=== PATIENT | female | born 1950 | race Caucasian/White ===

== ENCOUNTER 2018-08-18 13:19 | Emergency (ER) | payer MEDICARE ==
--- NOTE | 2018-08-18 13:51 | ER Document Report ---
Addendum entered and electronically signed by DAJUAN MCFARLAND LPC 08/18/18 16:12: Discharge - Discharge Clinical Impression: Depression, Suicidal ideation Condition: Stable Disposition: HOME, SELF-CARE Additional Instructions: You have been evaluated by both medical and behavioral health providers while in the emergency department. You have been cleared from both acute medical and psychiatric services. It is felt your increased depression and suicidal ideation is related to being detoxed and sober from alcohol the past 6 weeks, as well as social factors (got kicked out of [facility] so homeless since not from this area). Medications have been adjusted to account for likely increased depression and anxiety. You have been provided the [facility] Guide for homeless senior living, mobile crisis and local agency supports for dual diagnosis substance abuse/mental health. DEPRESSION: Your evaluation reveals that you have mental depression. While symptoms may be vague, they often include disturbance of sleep, fatigue, loss of appetite, and general loss of interest in life. While depression may be a side effect of drugs, or a reaction to a major change in your life, many cases have no known ca use. If depression is acute, and related to a major loss in your life, you can expect it to clear completely with time. If you have been depressed a long time, are prone to repeated bouts of depression or low mood, or have been thinking of suicide, get help. Depression can be treated with anti-depressant medication and counselling. Long-term depression will often take a few weeks to clear, even with appropriate medication. Follow-up care is important. SUICIDAL IDEATION: Suicidal ideation is a common medical term for thoughts about suicide, which may be as detailed as a formulated plan, without the suicidal act itself. Although most people who undergo suicidal ideation do not commit suicide, some go on to make suicide attempts. The range of suicidal ideation varies greatly from fleeting to detailed planning, role playing, and unsuccessful attempts. While thoughts about suicide are common, most people do not carry out serious actions to commit suicide. Based upon your evaluation and discussion with you, we do not believe you are currently at risk to act upon your thoughts of suicide. You have agreed to return to the Emergency Department, at any time, if you feel inclined to act upon your suicidal thoughts. FOLLOW-UP CARE: Your medications have been adjusted: Discontinued Trazodone 300MG at night and Vistaril 50MG every 4 hours as needed, Decreased Melatonin to 5MG at night, Continued Celexa 20MG daily and added Buspar 5MG twice a day. These are the only psychiatric medications you should take daily as prescribed. You have been given the [facility] Guide for the local Homeless [facility], [facility] for crisis/talk therapy/linkage and [facility] for local dual diagnosis outpatient treatment for substance abuse and mental health. If you experience worsening or a significant change in your symptoms, notify the physician immediately, utilize mobile crisis or return to the Emergency Department at any time for re-evaluation. Referrals: [facility] [Outside] - Follow up as needed [facility] [Outside] - Follow up in 3-5 days Original Note: ED Medical Screen (RME) - General Chief Complaint: Psych Problem Stated Complaint: SUCIDIAL IDEATION Time Seen by Provider: 08/18/18 13:46 TRAVEL OUTSIDE OF THE U.S. IN LAST 30 DAYS: No - HPI Notes: 08/18/18 13:49 Patient is a 68-year-old female with history of anxiety and depression who presents complaining of suicidal ideation and plan without timeline. Patient states that she recently got out of a detox facility for alcohol and has been living at a women's sober housing for the last 6 weeks. Patient states that at her age she is wondering why she is still trying to fight the depression. She states that if she is going to take her life she would take her life by overdosing on her medicines. No HI, visual/auditory hallucinations. No recent illness. She is eating and drinking without difficulty. She is urinating normally. Denies drug allergies. Patient also notes that she has been having decreased vision for almost a year and for the last 6 months has had almost complete loss of vision in the right eye without any associated pain or redness. Patient states that she was evaluated once at another emergency department when her vision was getting worse, but she has not followed up with any grocery store clerk thereafter. Denies SUAZO, fever, neck pain, URI, CP, SOB, Abd pain, dysuria, back pain, or rash. I have treated and performed a rapid initial assessment of this patient. A comprehensive ED assessment and evaluation of the patient, analysis of test results and completion of medical decision making process will be conducted by additional ED providers. PHYSICAL EXAMINATION: GENERAL: Well-appearing, well-nourished and in no acute distress. A&Ox4. Answers questions appropriately. Eyes: PERRLA, EOMI b/l. LUNGS: Breath sounds clear to auscultation bilaterally and equal. No wheezes ra les or rhonchi. HEART: Regular rate and rhythm without murmurs, rubs, gallops. Extremities: No cyanosis, clubbing, or edema b/l. NEUROLOGICAL: Normal speech, normal gait. Cranial nerves grossly intact. PSYCH: Normal mood, normal affect. - Related Data Allergies/Adverse Reactions: No Known Allergies Allergy (Verified 08/18/18 13:39) Physical Exam - Vital signs Vitals: Temp Pulse Resp BP Pulse Ox 98.1 F 87 18 143/89 H 96 08/18/18 13:26 08/18/18 13:26 08/18/18 13:26 08/18/18 13:26 08/18/18 13:26 Course - Vital Signs Vital signs: Temp Pulse Resp BP Pulse Ox 98.1 F 87 18 143/89 H 96 08/18/18 13:26 08/18/18 13:26 08/18/18 13:26 08/18/18 13:26 08/18/18 13:26
--- NOTE | 2018-08-18 16:02 | PSYCHOLOGICAL NOTE ---
Psych Note - Psych Note Date seen by psych provider: 08/18/18 Psych Note: Presenting Problem: Increased Depression, SI, was staying at an [facility] the past 6 weeks, they voted her out yesterday due to not doing 20 hours of work/volunteering a week and not tending to house chores, she is originally from [facility] where she had alcohol detox then went to hospital in [place] then ended up at the [facility], does not want to stay in the area or return to [facility], noted having lived in [place] so maybe making way back there but no family and hasn't talked to friends there in awhile. She reported she has nowhere to go, has no money, would probably kill herself, like lay on [place]. She has medications with her, some current (Celexa 20MG QD, Trazodone 300MG QHS, Melatonin 10MG QHS, Vistaril 50MG Q4H PRN anxiety, Lisinopril 10MG QD) some from the end of 2017 (Effexor 150MG QD, Campral 666MG TID). She stated she has been on the same medications for 11 years and the last 7 years have been prescribed by [facility] in [facility]. She noted [facility] 11 years ago, due to alcohol and depression, has a relapse once a month and hospitalization corresponds with the relapse. She noted Gastric Bypass in 1999. She mentioned a brother in [facility] and an 80 year old Aunt in [place], neither are options for living arrangements per patient. Diagnosis: Recent Alcohol Detox/rehab/recovery Alcohol Use Disorder, Severe Unspecified Depressive Disorder Medication recommendations made by the psychiatric medical provider, Dr. Brandon MD., includes: Discontinue Trazodone 300MG at night for sleep Discontinue Vistaril 50MG every 4 hours as needed for anxiety Decrease Melatonin to 5MG QHS for sleep Continue Celexa 20MG daily for depression/ruminating thoughts Add Buspar 5MG twice a day for anxiety/calming effect/depression/sleep Impression/Plan: Patient is cleared from acute psychiatric services. She noted getting kicked out of an [facility] this morning after being there 6 weeks, not from this area, no place to go and no money. She endorsed SI after saying all the previous information. Mentioned laying on [place]. Depression increases when detoxed/recovering from alcohol. Medication adjustments provided. Provided [facility] Guide which highlighted local Homeless Residential, [facility] and [facility]. Consulted with Dr. Ceja regarding the management and care of patient. ED Physician in agreement with recommendations.
--- NOTE | 2018-08-18 16:18 | ER Document Report ---
ED General <ANIA JAIN - Last Filed: 08/19/18 06:09> - General Mode of Arrival: Ambulatory Information source: Patient TRAVEL OUTSIDE OF THE U.S. IN LAST 30 DAYS: No - HPI Onset: This afternoon Quality of pain: No pain Associated symptoms: None Exacerbated by: Denies Relieved by: Denies Similar symptoms previously: No Recently seen / treated by doctor: No <JOSEPH JACOBSEN - Last Filed: 08/19/18 20:09> - General Chief Complaint: Psych Problem Stated Complaint: SUCIDIAL IDEATION Time Seen by Provider: 08/18/18 13:46 Primary Care Provider: [facility] [Outside] - Follow up as needed [facility] [Outside] - Follow up in 3-5 days Notes: Patient presents emergency department with reports that she is suicidal. Denies history of suicide attempts. Patient gives history of alcohol abuse and rehab several times in the past 11 years. Patient reports that she has not had a drink for approximately 7 weeks. She was living in a sobriety house and was recently kicked out. She reports last night she was kicked out due to disruptive behavior because she had not paid her rent. Patient reports disruptive behavior can be anything from not completing her chores or not doing them correctly. She reports that she was voted out of the house last night and left this morning. Reports all her belongings are at the house and she is 72 hours to retrieve them. Patient reports she is suicidal has a bunch of pills and will plan on taking them. She reports she feels like she is at the end of her life anyway as her father when he was almost 70. She denies recreational drug use. She denies other symptoms such as fever vomiting diarrhea. Denies past medical history of bipolar schizophrenia or mental health issues. She reports alcohol abuse only. Patient does not know where she will go if she is discharged from here. Patient reports she does have a bank account but she cannot get her money out because she does not have an identification card. She reports she has been to the [facility] several times without success. She reports she does get her check on the third. Patient is calm, answering all questions appropriately (JOSEPH JACOBSNE) - Related Data Allergies/Adverse Reactions: No Known Allergies Allergy (Verified 08/19/18 13:46) Past Medical History - General Information source: Patient - Social History Smoking Status: Never Smoker Cigarette use (# per day): No Frequency of alcohol use: None - History of alcohol abuse Drug Abuse: None Lives with: Homeless Family History: Reviewed & Not Pertinent Patient has suicidal ideation: Yes Patient has homicidal ideation: No - Past Medical History Cardiac Medical History: Reports: Hx Hypertension Pulmonary Medical History: Reports: Hx Asthma Renal/ Medical History: Denies: Hx Peritoneal Dialysis Psychiatric Medical History: Reports: Hx Depression Past Surgical History: Reports: Hx Abdominal Surgery, Hx Breast Surgery, Hx Ort hopedic Surgery - right knee replacement <JOSEPH JACOBSEN - Last Filed: 08/19/18 20:09> Review of Systems <JOSEPH JACOBSEN - Last Filed: 08/19/18 20:09> - Review of Systems Notes: Review HPI for review of systems., All other systems negative (JOSEPH JACOBSEN) Physical Exam <JOSEPH JACOBSEN - Last Filed: 08/19/18 20:09> - Vital signs Vitals: Temp Pulse Resp BP Pulse Ox 98.1 F 87 18 143/89 H 96 08/18/18 13:26 08/18/18 13:26 08/18/18 13:26 08/18/18 13:26 08/18/18 13:26 - Notes Notes: PHYSICAL EXAMINATION: GENERAL: Well-appearing and in no acute distress HEAD: Atraumatic, normocephalic. EYES: Pupils equal round extraocular movements intact, sclera anicteric, conjunctiva are normal. ENT: nares patent, Moist mucous membranes. NECK: Normal range of motion, supple without lymphadenopathy LUNGS: CTAB and equal. No wheezes rales or rhonchi. HEART: Regular rate and rhythm without murmurs ABDOMEN: Soft, no tenderness. No guarding, no rebound EXTREMITIES: Normal range of motion, NEUROLOGICAL: Cranial nerves grossly intact. PSYCH: Normal mood, normal affect. SKIN: Warm, Dry, normal turgor, no rashes or lesions noted (JOSEPH JACOBSEN) Course - Laboratory Result Diagrams: 08/18/18 17:05 08/18/18 13:51 <ANIA JAIN - Last Filed: 08/19/18 06:09> - Laboratory Result Diagrams: 08/18/18 17:05 08/18/18 13:51 - EKG Interpretation by Me EKG shows normal: Sinus rhythm Rate: Normal Rhythm: NSR <JOSEPH JACOBSEN - Last Filed: 08/19/18 20:09> - Re-evaluation Re-evalutation: 08/19/18 06:09 There is been no change in patient's status to the night. Patient has been resting comfortably with eyes closed in no acute distress noted. Currently awaiting consult with ED delinquency prevention social worker as well as community paramedics. (ANIA JAIN) 08/18/18 16:43 behavioral health, Siria advised patient to be discharged she does not think she is suicide will but homeless. Vikram reports she discussed a ride to the homeless fpc with dining service supervisor and it has been approved. Both Vikram and I talked with patient. Patient reports that she does not know what she will do, she reports she is not afraid to be suicidal with her medications. She reports she does not have anywhere to go she has never been in this position all her belongings are at the sobriety house. She reports that she does not have an identification. She cannot obtain money from her bank. Since patient does not have an identification she cannot go the homeless fpc. We will keep her overnight and plan on discharging home tomorrow with assistance from mobile crisis center and community paramedics to help her obtain an ID and secure housing. I left a message on Maicol Royal, ED disease case manager telephone for community forest fire prevention manager help. Patient has taken her lisinopril and Celexa today. Mental health advises trazodone and vistaril be discontinued but add BuSpar 5 mg twice daily. Patient was instructed on changes. Dictation of this chart was performed using voice recognition software; the refore, there may be some unintended grammatical errors. 08/18/18 16:56 maicol aden at my desk, updated on patient situation. she will contact the community paramedics. 08/18/18 19:28 Patient Is calm no distress reports dinner was great seems to be enjoying her stay. 08/18/18 20:13 REPORT given to ania gale (JOSEPH JACOBSEN) - Vital Signs Vital signs: Temp Pulse Resp BP Pulse Ox 98.4 F 77 18 147/90 H 99 08/19/18 13:10 08/19/18 13:10 08/19/18 13:10 08/19/18 13:10 08/19/18 13:10 - Laboratory Laboratory results interpreted by me: 08/18/18 08/18/18 08/18/18 13:51 14:45 17:05 Hgb 11.1 L Hct 34.0 L RDW 19.8 H Creatinine 0.39 L Glucose 161 H Urine Blood SMALL H Ur Leukocyte Esterase LARGE H Salicylates < 1.0 L Acetaminophen < 10 L - EKG Interpretation by Me Additional EKG results interpreted by me: 08/18/18 20:14 ST elevation no T wave inversion (JOSEPH JACOBSEN) Discharge <ANIA JAIN - Last Filed: 08/19/18 06:09> <JOSEPH JACOBSEN - Last Filed: 08/19/18 20:09> - Discharge Clinical Impression: Depression, Suicidal ideation Condition: Stable Disposition: HOME, SELF-CARE Additional Instructions: You have been evaluated by both medical and behavioral health providers while in the emergency department. You have been cleared from both acute medical and psychiatric services. It is felt your increased depression and suicidal ideation is related to being detoxed and sober from alcohol the past 6 weeks, as well as social factors (got kicked out of [facility] so homeless since not from this area). Medications have been adjusted to account for likely increa sed depression and anxiety. You have been provided the [facility] for homeless fpc, mobile crisis and local agency supports for dual diagnosis substance abuse/mental health. DEPRESSION: Your evaluation reveals that you have mental depression. While symptoms may be vague, they often include disturbance of sleep, fatigue, loss of appetite, and general loss of interest in life. While depression may be a side effect of drugs, or a reaction to a major change in your life, many cases have no known cause. If depression is acute, and related to a major loss in your life, you can expect it to clear completely with time. If you have been depressed a long time, are prone to repeated bouts of depression or low mood, or have been thinking of suicide, get help. Depression can be treated with anti-depressant medication and counselling. Long-term depression will often take a few weeks to clear, even with appropriate medication. Follow-up care is important. SUICIDAL IDEATION: Suicidal ideation is a common medical term for thoughts about suicide, which may be as detailed as a formulated plan, without the suicidal act itself. Although most people who undergo suicidal ideation do not commit suicide, some go on to make suicide attempts. The range of suicidal ideation varies greatly from fleeting to detailed planning, role playing, and unsuccessful attempts. While thoughts about suicide are common, most people do not carry out serious actions to commit suicide. Based upon your evaluation and discussion with you, we do not believe you are currently at risk to act upon your thoughts of suicide. You have agreed to return to the Emergency Department, at any time, if you feel inclined to act upon your suicidal thoughts. FOLLOW-UP CARE: Your medications have been adjusted: Discontinued Trazodone 300MG at night and Vistaril 50MG every 4 hours as needed, Decreased Melatonin to 5MG at night, Continued Celexa 20MG daily and added Buspar 5MG twice a day. These are the only psychiatric medications you should take daily as prescribed. You have been given the [facility] Sheet for the local [facility], [facility] for crisis/talk therapy/linkage and [facility] for local dual diagnosis outpatient treatment for substance abuse and mental health. It also lists other important information regarding social needs. You should return to the [facility] to obtain possessions and see if they can assist with other temporary and social needs. If you experience worsening or a significant change in your symptoms, notify the physician immediately, utilize mobile crisis or return to the Emergency Department at any time for re-evaluation. Referrals: [facility] [Outside] - Follow up as needed [facility] [Outside] - Follow up in 3-5 days
[2018-08-18 16:34] LABS: APPEARANCE,URINE CLOUDY; BILIRUBIN,URINE NEGATIVE (NEGATIVE); COLOR,URINE YELLOW; GLUCOSE, URINE NEGATIVE (NEGATIVE); KETONES,URINE NEGATIVE (NEGATIVE); LEUKOCYTE ESTERASE,URINE LARGE (NEGATIVE); NITRITE,URINE NEGATIVE (NEGATIVE); PROTEIN,URINE NEGATIVE (NEGATIVE); URINE SPECIFIC GRAVITY 1.012; UROBILINOGEN,URINE NEGATIVE mg/dL (<2.0)
[2018-08-18 16:43] LABS: URINE AMPHETAMINES SCREEN NEGATIVE; URINE BARBITURATES SCREEN NEGATIVE; URINE BENZODIAZEPINES SCREEN NEGATIVE; URINE COCAINE SCREEN NEGATIVE; URINE MARIJUANA (THC) SCREEN NEGATIVE; URINE METHADONE SCREEN NEGATIVE; URINE PHENCYCLIDINE SCREEN NEGATIVE
[2018-08-18] MEDS: BUSPIRONE HCL 10 MG TABLET PO SCH (17:36)
[2018-08-18 17:38] LABS: ABSOLUTE BASOPHILS # (AUTO) 0.1 10^3/uL (0.0-0.2); ABSOLUTE EOSINOPHILS # (AUTO) 0.2 10^3/uL (0.0-0.6); ABSOLUTE LYMPHOCYTES (AUTO) 2.2 10^3/uL (0.5-4.7); ABSOLUTE MONOCYTES (AUTO) 0.6 10^3/uL (0.1-1.4); ABSOLUTE NEUT (AUTO) 3.6 10^3/uL (1.7-8.2); BASOPHILS % (AUTO) 1.3 % (0-2); EOSINOPHILS % (AUTO) 2.8 % (0-6); HEMOGLOBIN 11.1 g/dL (12.0-15.5); LYMPHOCYTES % (AUTO) 33.2 % (13-45); MEAN CORPUSCULAR HEMOGLOBIN 28.4 pg (27.0-33.4); MEAN CORPUSCULAR HGB CONC 32.7 g/dL (32.0-36.0); MEAN CORPUSCULAR VOLUME 87 fl (80-97); MONOCYTES % (AUTO) 9.1 % (3-13); PLATELET COUNT 226 10^3/uL (150-450); RED CELL DISTRIBUTION WIDTH 19.8 % (11.5-14.0); SEGMENTED NEUTROPHILS % (AUTO) 53.6 % (42-78); TOTAL CELLS COUNTED % (AUTO) 100 %; WHITE BLOOD COUNT 6.7 10^3/uL (4.0-10.5)
[2018-08-18 17:48] LABS: ALANINE AMINOTRANSFERASE 14 U/L (9-52); ALBUMIN 3.9 g/dL (3.5-5.0); ALKALINE PHOSPHATASE 70 U/L (38-126); ANION GAP 7 (5-19); ASPARTATE AMINO TRANSFERASE 21 U/L (14-36); BILIRUBIN,DIRECT 0.2 mg/dL (0.0-0.4); BILIRUBIN,TOTAL 0.4 mg/dL (0.2-1.3); BLOOD UREA NITROGEN 9 mg/dL (7-20); CALCIUM 9.8 mg/dL (8.4-10.2); CARBON DIOXIDE 27 mmol/L (22-30); CHLORIDE 104 mmol/L (98-107); GLUCOSE 161 mg/dL (75-110); POTASSIUM 3.7 mmol/L (3.6-5.0); SODIUM 138.2 mmol/L (137-145); TOTAL PROTEIN 6.4 g/dL (6.3-8.2)
[2018-08-18 17:49] LABS: ACETAMINOPHEN < 10 ug/mL (10-30); ALCOHOL < 10 mg/dL (NONE DETECTED); SALICYLATE < 1.0 mg/dL (2.0-20.0)
--- NOTE | 2018-08-18 18:23 | EKG REPORT ---
SEVERITY:- ABNORMAL ECG - SINUS RHYTHM ABNRM R PROG, CONSIDER ASMI OR LEAD PLACEMENT : Confirmed by: Wang Rivers MD 18-Aug-2018 18:22:53
[2018-08-18] MEDS ORDERED: MELATONIN 5 MG TABLET PO SCH (22:00)
[2018-08-19] MEDS: BUSPIRONE HCL 10 MG TABLET PO SCH (09:26)
--- NOTE | 2018-08-19 10:20 | ER Document Report ---
Doctor's Note Notes: 08/19/18 10:19 Rounds: Chart reviewed and patient interviewed. Patient says she still depressed. According to her chart, she is homeless. [place] here [place]. History of depression and anxiety. History of alcohol abuse. Vital signs are all normal. Lab studies were essentially normal except for urine whic h looks contaminated. Patient has no UTI symptoms. Patient appears to be medically stable for transfer or discharge. Henna Andino MD
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
[2018-08-19 13:11] VITALS: BP 147/90
== END 2018-08-19 13:27 | disposition home or self-care (01) ==
LOC: ER 13:19
DX: R45.851 Suicidal ideations (principal); F32.9 Major depressive disorder, single episode, unspecified; F41.9 Anxiety disorder, unspecified; Z59.0 Homelessness
CPT/HCPCS: 93005; 99285; 36415; 80307 ×4; 85025; 80053; 81001; 93010; A9270 ×3; J3490

== ENCOUNTER 2018-08-19 13:45 | Emergency (ER) | payer MEDICARE ==
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
--- NOTE | 2018-08-19 14:57 | PSYCHOLOGICAL NOTE ---
<DAJUAN MCFARLAND - Last Filed: 08/19/18 15:06> Psych Note - Psych Note Date seen by psych provider: 08/19/18 Psych Note: Presenting Problem: No pace to go so SI. Patient was seen yesterday and held overnight for the same reason. She was discharged today, supposed to go to the [facility] to get her belongings and see if they had resources and recommendations, provided [facility] Street Sheet which highlighted [facility]/Local [facility]eless [facility]-Way. The [facility] team consulted with the [facility] and ED SW. Patient stayed in the lobby of the ED and never left. She then checked back in saying she had nowhere to go. Diagnosis: Homelessness SI Depression Recent detox and 6 week rehab for alcohol Medication recommendations made by the psychiatric medical provider, Dr. Brandon MD., includes: Continue medications from earlier discharge Celexa 20MG QD Buspar 5MG BID Melatonin 5MG QHS Impression/Plan: Patient is cleared from acute psychiatric services. Her issues are felt to be social in nature (no home/residence, no transportation, no money since she has no access to bank). She needs an ID but has to have a SS card or certificate which she says she does not have and is not sure where it is. She remained in the ED lobby upon <RESHMA SOTOMAYOR - Last Filed: 08/22/18 08:40> Psych Note - Psych Note Psych Note: Update to Diagnosis: Malingering Unspecified personality disorder Homelessness alcohol abuse per history
--- NOTE | 2018-08-19 15:20 | ER Document Report ---
ED Psych Disorder / Suicide - General Mode of Arrival: Ambulatory TRAVEL OUTSIDE OF THE U.S. IN LAST 30 DAYS: No - General Chief Complaint: Psych Problem Stated Complaint: PSYCH Time Seen by Provider: 08/19/18 14:10 Primary Care Provider: [facility] [Outside] - Follow up as needed [facility] [Outside] - Follow up as needed Notes: Patient is here to be evaluated for depression and suicidal thoughts. She says she feels "hopeless" and feels like she wants to "end it". Patient was just seen in our facility last night and this morning and just discharged a short while ago. Patient has a sister who lives in [facility]. She will have nothing to do with this patient because of the patient's being in and out of facilities, apparently for alcohol abuse. Patient was seen at [facility] a couple of months ago and admitted there and after being discharged she was transferred to a facility in [facility]. She did not pay her rent and was kicked out of that facility and is now here. Patient says that her problem is that she has money in the bank, but in being transferred from [place] to [place], she had two of her bags of belongings lost and 1 of them had her picture ID in it. She is now unable to em the check or get access to her finds that are in the bank to pay her rent or to eat or anything else. (NEMO CHOU) - Related Data Allergies/Adverse Reactions: No Known Allergies Allergy (Verified 08/19/18 13:46) Past Medical History - General Information source: Patient - Social History Smoking Status: Former Smoker Frequency of alcohol use: None Drug Abuse: None Family History: Reviewed & Not Pertinent Patient has suicidal ideation: Yes Patient has homicidal ideation: No - Past Medical History Cardiac Medical History: Reports: Hx Hypertension Pulmonary Medical History: Reports: Hx Asthma Psychiatric Medical History: Reports: Hx Depression Past Surgical History: Reports: Hx Abdominal Surgery, Hx Breast Surgery, Hx Orthopedic Surgery - right knee replacement Review of Systems - Review of Systems Notes: CONSTITUTIONAL : Denies fever. CARDIOVASCULAR: Denies chest pain. RESPIRATORY: Denies cough, chest congestion, or shortness of breath. GASTROINTESTINAL: Denies abdominal pain or nausea, vomiting, or diarrhea. GENITOURINARY: Denies difficulty or painful urinating, urinary frequency, blood in urine. (NEMO CHOU) Physical Exam - Vital signs Interpretation: Normal - Vital signs Vitals: Temp Pulse Resp BP Pulse Ox 98.6 F 91 13 154/82 H 97 08/19/18 13:51 08/19/18 13:51 08/19/18 13:51 08/19/18 13:51 08/19/18 13:51 Notes: PHYSICAL EXAMINATION: GENERAL: Well-appearing, no acute distress. HEAD: Atraumatic, normocephalic. NECK: Normal range of motion, supple. LUNGS: Breath sounds clear and equal bilaterally. HEART: Regular rate and rhythm without murmurs heard. ABDOMEN: Soft, nontender. No guarding or rebound or masses felt. (NEMO CHOU) Course - Re-evaluation Re-evalutation: 08/19/18 19:50 Am not sure what we have further to offer this patient. Everyone has been looking into alternatives and there do not seem to be any. I am going to keep this patient overnight so that we can try to address her one final time tomorrow. (NEMO CHOU) - Vital Signs Vital signs: Temp Pulse Resp BP Pulse Ox 98.6 F 91 13 154/82 H 97 08/19/18 13:51 08/19/18 13:51 08/19/18 13:51 08/19/18 13:51 08/19/18 13:51 - Laboratory Laboratory results interpreted by me: 08/19/18 14:16 Urine Ketones TRACE H Urine Urobilinogen 2.0 H Ur Leukocyte Esterase TRACE H Discharge - Discharge Clinical Impression: Depression, Suicidal ideation Condition: Stable Disposition: HOME, SELF-CARE Additional Instructions: You have been evaluated by both medical and behavioral health providers while in the emergency department. You have been cleared from both acute medical and psychiatric services. It is felt your issues are social in nature (no place to live or go, no transportation, no money because lost bank card for access, no ID because lost it). The [facility] team coordinated with emergency department social work and community paramedics regarding your social needs at your earlier visit. You were made aware of need for ID and given [facility] Street Sheet. DEPRESSION: Your evaluation reveals that you have mental depression. While symptoms may be vague, they often include disturbance of sleep, fatigue, loss of appetite, and general loss of interest in life. While depression may be a side effect of drugs, or a reaction to a major change in your life, many cases have no known cause. If depression is acute, and related to a major loss in your life, you can expect it to clear completely with time. If you have been depressed a long time, are prone to repeated bouts of depression or low mood, or have been thinking of suicide, get help. Depression can be treated with anti-depressant medication and counselling. Long-term depression will often take a few weeks to clear, even with appropriate medication. Follow-up care is important. SUICIDAL IDEATION: Suicidal ideation is a common medical term for thoughts about suicide, which may be as detailed as a formulated plan, without the suicidal act itself. Although most people who undergo suicidal ideation do not commit suicide, some go on to make suicide attempts. The range of suicidal ideation varies greatly from fleeting to detailed planning, role playing, and unsuccessful attempts. While thoughts about suicide are common, most people do not carry out serious actions to commit suicide. Based upon your evaluation and discussion with you, we do not believe you are currently at risk to act upon your thoughts of suicide. You have agreed to return to the Emergency Department, at any time, if you feel inclined to act upon your suicidal thoughts. FOLLOW-UP CARE: Recommendation is for your to go back to the [facility] where you had been residing the last 6 weeks to obtain your belongings and inquire about assistance/resources they might have or know. You have access to [facility] Mobile Crisis contact information. If you experience worsening or a significant change in your symptoms, notify the physician immediately, utilize or return to the Emergency Department at any time for re-evaluation. Referrals: [facility] [Outside] - Follow up as needed [facility] [Outside] - Follow up as needed
[2018-08-19] MEDS: BUSPIRONE HCL 10 MG TABLET PO SCH (18:50)
[2018-08-19 18:51] LABS: APPEARANCE,URINE SLIGHTLY-CLOUDY; BILIRUBIN,URINE NEGATIVE (NEGATIVE); CALCIUM OXALATE CRYSTALS,URINE FEW /HPF; GLUCOSE, URINE NEGATIVE (NEGATIVE); KETONES,URINE TRACE mg/dL (NEGATIVE); LEUKOCYTE ESTERASE,URINE TRACE (NEGATIVE); NITRITE,URINE NEGATIVE (NEGATIVE); PROTEIN,URINE NEGATIVE (NEGATIVE); URINE SPECIFIC GRAVITY 1.023
[2018-08-19 18:52] LABS: COLOR,URINE DARK YELLOW
[2018-08-19 19:09] LABS: URINE AMPHETAMINES SCREEN NEGATIVE; URINE BARBITURATES SCREEN NEGATIVE; URINE BENZODIAZEPINES SCREEN NEGATIVE; URINE COCAINE SCREEN NEGATIVE; URINE MARIJUANA (THC) SCREEN NEGATIVE; URINE METHADONE SCREEN NEGATIVE; URINE PHENCYCLIDINE SCREEN NEGATIVE
[2018-08-20] MEDS: CITALOPRAM HYDROBROMIDE 20 MG TABLET PO SCH (09:55)
[2018-08-20] MEDS: BUSPIRONE HCL 10 MG TABLET PO SCH ×2 (09:55→17:47)
[2018-08-21] MEDS: CITALOPRAM HYDROBROMIDE 20 MG TABLET PO SCH (10:05)
[2018-08-21] MEDS: BUSPIRONE HCL 10 MG TABLET PO SCH ×2 (10:05→17:39)
--- NOTE | 2018-08-21 17:10 | ER Document Report ---
Doctor's Note Notes: 08/21/18 17:08 Patient continues on social hold. Social workers are attempting to find a solution to her homeless dilemma at this time. The patient seems to be trying to have a toxic any solutions that the social workers, come up with. It has been determined that the patient has been seeing Dr. Pollock and getting prescriptions from him. His office will be contacted in an attempt to get a valid ID on the patient as she claims loss of her IV is preventing her from accessing her bank accounts. She appears in no distress, sitting up in the bed reading. She has requested that her lap and table be brought to her from the last facility she was staying in.
[2018-08-22] MEDS: BUSPIRONE HCL 10 MG TABLET PO SCH ×2 (10:03→18:23)
[2018-08-22] MEDS: CITALOPRAM HYDROBROMIDE 20 MG TABLET PO SCH (10:03)
--- NOTE | 2018-08-22 18:30 | ER Document Report ---
Doctor's Note Notes: 08/22/18 18:30 Pleasantly sitting haircutting pictures out of magazines. No complaints. Probably homeless. I do not know what she is doing here but I will let social work to do their thing. Here for services as a physician if need be however I think patient needs social science research assistant not physician services. It is unfortunate that this lady is in the emergency department.
--- NOTE | 2018-08-23 09:28 | ER Document Report ---
Doctor's Note Notes: 08/23/18 09:27 Patient seen and evaluated. She is resting comfortably in bed and in no acute distress. She has no current complaints. Patient is on a social hold for reportedly being homeless. She expresses to me that she would like to go back to the [employer] She also states that she has money to do so but cannot get it without an ID. She is awaiting social service liaison. She is medically stable
[2018-08-23] MEDS: CITALOPRAM HYDROBROMIDE 20 MG TABLET PO SCH (09:57)
[2018-08-23] MEDS: BUSPIRONE HCL 10 MG TABLET PO SCH ×2 (09:57→18:07)
[2018-08-23] MEDS ORDERED: ONDANSETRON 4 MG TAB.RAPDIS PO ONE (13:34)
--- NOTE | 2018-08-24 09:39 | ER Document Report ---
Doctor's Note Notes: 08/24/18 09:39 Patient seen and evaluated. She has no change since yesterday. Patient is awaiting transition social worker consultation today. She has no medical complaints and is otherwise medically cleared.
[2018-08-24] MEDS: BUSPIRONE HCL 10 MG TABLET PO SCH ×2 (10:11→18:10)
[2018-08-24] MEDS: CITALOPRAM HYDROBROMIDE 20 MG TABLET PO SCH (10:13)
[2018-08-25] MEDS: CITALOPRAM HYDROBROMIDE 20 MG TABLET PO SCH (09:26)
[2018-08-25] MEDS: BUSPIRONE HCL 10 MG TABLET PO SCH ×2 (09:26→18:31)
--- NOTE | 2018-08-25 10:14 | ER Document Report ---
Doctor's Note Notes: 08/25/18 10:10 Rounds: Patient is here because she is homeless and does not have any place to go. She was admitted for suicidal thoughts. I recall the patient from seeing her when she was readmitted about 4 days ago. Patient has all of her belongings in her room. Apparently has money in a bank, but cannot access it because she does not have a picture ID. Not sure what the plan is for the patient. Does not have anyone here in this area, comes from [facility]. Vital signs all remained stable and normal. Lab studies initially were all normal. Patient appears to be medically stable for transfer or discharge. Henna Andino MD
[2018-08-26] MEDS: CITALOPRAM HYDROBROMIDE 20 MG TABLET PO SCH (10:17)
[2018-08-26] MEDS: BUSPIRONE HCL 10 MG TABLET PO SCH (10:17)
--- NOTE | 2018-08-26 10:34 | ER Document Report ---
Doctor's Note Notes: 08/26/18 10:32 Rounds: Chart reviewed and patient interviewed. No change in condition. Vital signs are all normal. Awaiting discharge planning's assistance on placing patient. Patient appears to be medically stable for transfer or discharge. Henna Andino MD
[2018-08-26 15:15] VITALS: BP 174/93
== END 2018-08-26 15:20 | disposition home or self-care (01) ==
LOC: ER 13:45
DX: F32.9 Major depressive disorder, single episode, unspecified (principal); R45.851 Suicidal ideations; I10 Essential (primary) hypertension; J45.909 Unspecified asthma, uncomplicated; Z87.891 Personal history of nicotine dependence; Z59.0 Homelessness; Z59.8 Other problems related to housing and economic circumstances
CPT/HCPCS: 99285; 81001; 80307; A9270 ×16; S0119

== ENCOUNTER 2018-09-06 13:57 | Emergency (ER) | payer MEDICARE ==
[2018-09-06] MEDS ORDERED: NORMAL SALINE 1000 ML 1,000 ML IV ONE (14:40)
[2018-09-06 14:46] VITALS: BP 91/60
--- NOTE | 2018-09-06 14:47 | ER Document Report ---
ED Psych Disorder / Suicide - General Chief Complaint: Psych Problem Stated Complaint: PSYCH EVAL Time Seen by Provider: 09/06/18 14:28 TRAVEL OUTSIDE OF THE U.S. IN LAST 30 DAYS: No - HPI Notes: Patient is a 68-year-old female that presents to the emergency department for chief complaint of suicidal ideation. Patient had been placed at a homeless jail from this emergency room on 08/26/2018. She states that she did not like the jail and would "rather be than live like that" so she left the jail on her own accord. Patient then went to a motel and was reportedly evicted today for not paying her bill. [place] police were with the patient evicting her from the motel when she told them that she would just have to kill herself since she had nowhere to go. EMS was then called who brought her to the emergency room. Patient does state that she would rather be than homeless. She is still drinking alcohol daily. She admits that she has money which previously she had said she did not have access to. Patient has been using her money to buy alcohol at [employer] per her. Patient has no medical complaints including chest pain, shortness of breath, nausea/vomiting, abdominal pain, fevers and chills. Past Medical History: Depression Past Surgical History: Reviewed in chart Social History: Alcoholism, denies tobacco and drug use Family History: Reviewed and noncontributory for presenting illness Allergies: Reviewed, see documented allergy list. REVIEW OF SYSTEMS: CONSTITUTIONAL : No fever No chills No diaphoresis No recent illness EENT: No vision changes No congestion No sore throat CARDIOVASCULAR: No chest pain No palpitations RESPIRATORY: No shortness of breath No cough No difficulty breathing GASTROINTESTINAL: No abdominal pain No nausea No vomiting No diarrhea GENITOURINARY: No dysuria No hematuria No difficulty urinating MUSCULOSKELETAL: No back pain No leg pain No arm pain SKIN: No rashes No lesions LYMPHATIC: No swollen, enlarged glands. NEUROLOGICAL: No lightheadedness No headache No weakness No paresthesias PSYCHIATRIC: No anxiety No depression PHYSICAL EXAMINATION: Vital signs reviewed, nursing noted reviewed. GENERAL: Well-appearing, well-nourished and in no acute distress. HEAD: Atraumatic, normocephalic. EYES: Eyes appear normal, extraocular movements intact, sclera anicteric, conjunctiva are normal. ENT: nares patent, oropharynx clear without exudates. Mildly dry mucous membranes. NECK: Normal range of motion, supple without lymphadenopathy LUNGS: Breath sounds clear to auscultation bilaterally and equal. No wheezes rales or rhonchi. HEART: Tachycardic rate and regular rhythm without murmurs ABDOMEN: Soft, nontender, normoactive bowel sounds. No rebound, guarding, or rigidity. No masses appreciated. EXTREMITIES: Nontender, good range of motion, no pitting or edema. NEUROLOGICAL: No focal neurological deficits. Moves all extremities sponta neously Motor and sensory grossly intact on exam. PSYCH: Agitated mood, normal affect. SKIN: Warm, Dry, normal turgor, no rashes or lesions noted on exposed skin - Related Data Allergies/Adverse Reactions: No Known Allergies Allergy (Verified 08/19/18 13:46) Past Medical History - Social History Smoking Status: Unknown if Ever Smoked Family History: Reviewed & Not Pertinent Patient has suicidal ideation: Yes Patient has homicidal ideation: No - Past Medical History Cardiac Medical History: Reports: Hx Hypertension Pulmonary Medical History: Reports: Hx Asthma Renal/ Medical History: Denies: Hx Peritoneal Dialysis Psychiatric Medical History: Reports: Hx Depression Past Surgical History: Reports: Hx Abdominal Surgery, Hx Breast Surgery, Hx Orthopedic Surgery - right knee replacement Physical Exam - Vital signs Vitals: Pulse Resp BP Pulse Ox 101 H 18 91/60 L 94 09/06/18 14:45 09/06/18 14:45 09/06/18 14:45 09/06/18 14:45 Course - Re-evaluation Re-evalutation: 09/06/18 14:45 Vitals reviewed. Nursing notes reviewed. Patient is mildly tachycardic with a borderline blood pressure. She has dry mucous membranes. She states she has been mostly drinking alcohol and I suspect she is dehydrated. Patient will be given IV fluids. I did evaluate this patient in the last time she was in the emergency room. She appears well kept today and is clean. She does not clinically appear intoxicated and is speaking in full sentences. Patient clearly has secondary gain to benefit by staying in the emergency room since she has been evicted by the hotel. Patient was in the emergency room on her last visit for a prolonged period of time while the social workers were attempting to get her placed in the jail. I am being told that the jail but the rules to get her in because she did not have an ID. At that time patient was stating that she had no money or way to access her money because she did not have an I&D however she has continued to buy groceries and alcohol and now tells me that she does have money. Patient's plan is to "take pills" she does state that she will kill herself if she continues to be homeless. Patient has no history of suicide attempt in the past. She has no reported self injury today. 09/06/18 15:19 Patient was evaluated by the psych team. I did witness conversations that were had with Dr. Ceja. Dr. Ceja is very familiar with this patient and does not feel she is acutely suicidal or requiring any further inpatient evaluation. Patient is malingering and has secondary gain. At this point I do not feel she is actively suicidal. Patient's blood pressure is borderline and I recommended blood work and IV fluids given her apparent dehydration. Patient stated that needles make her feel lightheaded and that we would not be getting near her with a needle today. I did tell her that we might find a medical reason she may need to stay in the hospital however she has continued to decline. When I told her that she needs to drink more water to stay hydrated and she rolled her eyes and told me to "fuck off". Patient is on her cell phone at least speaking with someone in an attempt to get a ride out of the emergency room. At this point she is refusing any medical care and does have capacity to make medical decisions. She has no criteria for involuntary commitment. Patient will leave the department AGAINST MEDICAL ADVICE. - Vital Signs Vital signs: Temp Pulse Resp BP Pulse Ox 101 H 18 91/60 L 94 09/06/18 14:45 09/06/18 14:45 09/06/18 14:45 09/06/18 14:45 Discharge - Discharge Clinical Impression: Dehydration, Malingering, Suicidal ideation Low blood pressure Qualifiers: Hypotension type: unspecified hypotension type Qualified Code(s): I95.9 - Hypotension, unspecified Condition: Stable Disposition: AGAINST MEDICAL ADVICE Instructions: Dehydration ([facility]), Chronic Alcoholism ([facility]) Additional Instructions: Your blood pressure was low today and it was recommended that you receive IV fluids and a work-up including blood work in the emergency room. I suspect you are dehydrated and encourage you to drink more fluids. Please decrease the amount of alcohol you are consuming daily. If you have any concerns please return to the emergency room for further management Please contact your doctor regarding your home medications and follow-up. If you have any questions please do not hesitate to return to the emergency room Referrals: [facility] [Provider Group] - Follow up as needed [facility] [Provider Group] - Follow up as needed [facility] [Provider Group] - Follow up as needed
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
== END 2018-09-06 15:29 | disposition left against medical advice (07) ==
LOC: ER 13:57
DX: R45.851 Suicidal ideations (principal); E86.0 Dehydration; I95.9 Hypotension, unspecified; Z76.5 Malingerer [conscious simulation]; Z59.0 Homelessness; R00.0 Tachycardia, unspecified; I10 Essential (primary) hypertension; J45.909 Unspecified asthma, uncomplicated; F10.20 Alcohol dependence, uncomplicated
CPT/HCPCS: 99284

== ENCOUNTER 2018-09-06 20:40 | Emergency (ER) | payer MEDICARE ==
--- NOTE | 2018-09-06 21:37 | ER Document Report ---
ED General - General Stated Complaint: SI TRAVEL OUTSIDE OF THE [place] IN LAST 30 DAYS: No - HPI Notes: Patient is a 68-year-old female that presents to the emergency department for chief complaint of suicidal ideation. She was evaluated in this emergency room a few hours ago with the same complaint. She has been seen multiple occasions in the emergency room complaining of suicidal ideation. Patient has no history of suicide attempt or self-harm. She was evaluated by the psych team early this morning and today and cleared from their service. Patient had a friend pick her up from the emergency room and went to [facility] where she bought a box of wine. Patient was sitting outside of [facility] drinking the wine when police were called. Police then notified EMS because patient appeared intoxicated. EMS did not feel at that time she needed to be transported however they were called back to the scene a second time. At that time they involved mobile crisis who came to [facility]. Mobile crisis had the patient on the phone with an inpatient detox facility who had a bed available for her tonight if she would talk to them over the phone and provide information. Patient did not wish to participate in this phone call. 1 of the EMS providers reportedly gave her a phone number of someone in the area who helps find nursing home at night for homeless however after one phone call patient refused to try the phone number back again. The mobile crisis caregiver who is present at bedside states that once it was clear to the patient that she did not have an inpatient bed for the night she began telling mobile crisis that she was going to kill herself. At that time mobile crisis instructed EMS to bring her to [facility] emergency room. Patient is still stating that she thinks about killing herself by taking her trazodone. This is the same c omplaint she had earlier today. She denies any new complaints. Past Medical History: Reviewed in chart Past Surgical History: Reviewed in chart Social History: Alcoholism. Denies tobacco and drug use Family History: Reviewed and noncontributory for presenting illness Allergies: Reviewed, see documented allergy list. REVIEW OF SYSTEMS: CONSTITUTIONAL : No fever No chills No diaphoresis No recent illness EENT: No vision changes No congestion No sore throat CARDIOVASCULAR: No chest pain No palpitations RESPIRATORY: No shortness of breath No cough No difficulty breathing GASTROINTESTINAL: No abdominal pain No nausea No vomiting No diarrhea GENITOURINARY: No dysuria No hematuria No difficulty urinating MUSCULOSKELETAL: No back pain No leg pain No arm pain SKIN: No rashes No lesions LYMPHATIC: No swollen, enlarged glands. NEUROLOGICAL: No lightheadedness No headache No weakness No paresthesias PSYCHIATRIC: No anxiety depression PHYSICAL EXAMINATION: Vital signs reviewed, nursing noted reviewed. GENERAL: Well-appearing, well-nourished and in no acute distress. HEAD: Atraumatic, normocephalic. EYES: Eyes appear normal, extraocular movements intact, sclera anicteric, conjunctiva are normal. ENT: nares patent, oropharynx clear without exudates. Moist mucous membranes. NECK: Normal range of motion, supple without lymphadenopathy LUNGS: Breath sounds clear to auscultation bilaterally and equal. No wheezes rales or rhonchi. HEART: Regular rate and rhythm without murmurs ABDOMEN: Soft, nontender, normoactive bowel sounds. No rebound, guarding, or rigidity. No masses appreciated. EXTREMITIES: Nontender, good range of motion, no pitting or edema. NEUROLOGICAL: No focal neurological deficits. Moves all extremities spontaneously Motor and sensory grossly intact on exam. PSYCH: Normal mood, normal affect. SKIN: Warm, Dry, normal turgor, no rashes or lesions noted on exposed skin - Related Data Allergies/Adverse Reactions: No Known Allergies Allergy (Verified 08/19/18 13:46) Past Medical History - Social History Smoking Status: Never Smoker Family History: Reviewed & Not Pertinent - Past Medical History Cardiac Medical History: Reports: Hx Hypertension Pulmonary Medical History: Reports: Hx Asthma Renal/ Medical History: Denies: Hx Peritoneal Dialysis Psychiatric Medical History: Reports: Hx Depression Past Surgical History: Reports: Hx Abdominal Surgery, Hx Breast Surgery, Hx Orthopedic Surgery - right knee replacement Course - Re-evaluation Re-evalutation: 09/06/18 21:34 Vitals reviewed. Nursing notes reviewed. Patient was seen by myself earlier today. At that time she was tachycardic with a borderline blood pressure. Her blood pressure and heart rate currently are normal. Patient had left to the hospital after refusing IV fluids and work-up for her altered vital signs. She has continued to drink alcohol but states she has had some water as well. Currently she is able to ambulate without difficulty. She is speaking in full sentences and not slurring her words. She does have capacity to understand her medical decision making. Patient is telling me the same story that she would like to kill herself by taking trazodone. I did go through her medications and she has 3 trazodone tablets left from her prescription in July. Patient has not attempted suicide since leaving the hospital. Mobile crisis is currently here and states they will see her when she is discharged and continue working with her to find placement for alcohol detox as well as a place to stay tonight. At this point she is hemodynamically stable with no new medical complaints. She was cleared from our psych service a few hours prior and has no new psychiatric complaints. I did confront her regarding the likelihood that she is malingering. Patient states she is embarrassed to say that she has nowhere to stay and does like staying at this emergency room. Patient has a friend she met in who provided her transportation earlier that she states she can call. She has a credit card and em to assist in finding food and nursing home as well. At this point I see no need for further need medical evaluation in the emergency room. She has mobile crisis currently present with her to assist in further psychiatric needs on an outpatient basis. Patient discharged home. Discharge - Discharge Clinical Impression: Suicidal ideation Condition: Stable Disposition: HOME, SELF-CARE Instructions: Chronic Alcoholism ([facility]), Suicidal Ideation ([facility]) Referrals: [facility] [Provider Group] - Follow up as needed [facility] [Provider Group] - Follow up as needed [facility] [Provider Group] - Follow up as needed
== END 2018-09-06 21:50 | disposition home or self-care (01) ==
LOC: ER 20:40
DX: R45.851 Suicidal ideations (principal); F32.9 Major depressive disorder, single episode, unspecified; F10.20 Alcohol dependence, uncomplicated; I10 Essential (primary) hypertension; J45.909 Unspecified asthma, uncomplicated; Z59.0 Homelessness
CPT/HCPCS: 99284

== ENCOUNTER 2018-09-06 23:18 | Emergency (ER) | payer MEDICARE ==
--- NOTE | 2018-09-06 23:40 | ER Document Report ---
ED General - General Stated Complaint: SI Time Seen by Provider: 09/06/18 23:39 Primary Care Provider: [facility] [Provider Group] - Follow up as needed Notes: Patient is a 68-year-old female that presents to the emergency department for chief complaint of suicidal ideation. Patient was seen in the emergency department twice earlier today. Came back to the emergency department again this evening, for the third time, stating that she is suicidal, has no vertigo, she states that she has no money, it is in the bank and she is unable to get it at this time, and that she is more serious about killing herself at this time. She mentioned this twice earlier today as well, was seen by the behavioral health team. She states that she would take her trazodone which is what she mentioned earlier. She is carrying of her belongings with her at this time. She denies having any chest pain, fevers, chills, night sweats. She does admit to drinking wine earlier today. She denies any hallucinations, auditory or visual, is not having active delusions at this time. Past Medical History: Alcohol abuse, hypertension, depression Past Surgical History: Knee surgery Social History: alcohol use, denies illicit drug use, denies tobacco use Family History: Reviewed and noncontributory for presenting illness Allergies: Reviewed, see documented allergy list. REVIEW OF SYSTEMS: Other than noted above, the 12 point review of systems was reviewed with the patient and were negative, all pertinent findings are included in the HPI. PHYSICAL EXAMINATION: Vital signs reviewed, nursing noted reviewed. GENERAL: Well-appearing, well-nourished and in no acute distress. HEAD: Atraumatic, normocephalic. EYES: Eyes appear normal, sclera anicteric, conjunctiva are normal. ENT: Moist mucous membranes. NECK: Normal range of motion, supple without lymphadenopathy LUNGS: Breath sounds clear to auscultation bilaterally and equal. No wheezes rales or rhonchi. HEART: Regular rate and rhythm without murmurs EXTREMITIES: Nontender, good range of motion, no pitting or edema. NEUROLOGICAL: No focal neurological deficits. Moves all extremities spontaneously Motor and sensory grossly intact on exam. PSYCH: Normal mood, somewhat argumentative, but answering questions appropriately SKIN: Warm, Dry, normal turgor, no rashes or lesions noted on exposed skin TRAVEL OUTSIDE OF THE [place] IN LAST 30 DAYS: No - Related Data Allergies/Adverse Reactions: No Known Allergies Allergy (Verified 08/19/18 13:46) Past Medical History - Social History Smoking Status: Never Smoker Family History: Reviewed & Not Pertinent - Past Medical History Cardiac Medical History: Reports: Hx Hypertension Pulmonary Medical History: Reports: Hx Asthma Renal/ Medical History: Denies: Hx Peritoneal Dialysis Psychiatric Medical History: Reports: Hx Depression Past Surgical History: Reports: Hx Abdominal Surgery, Hx Breast Surgery, Hx Orthopedic Surgery - right knee replacement Course - Re-evaluation Re-evalutation: Patient was seen and examined, chart was reviewed, patient was seen earlier today twice by 1 of my colleagues, and was seen as well by the behavioral health team, and cleared from that standpoint, she was offered in by mobile crisis, to go to a detox facility, but refused to do that, she was apparently sitting in a [employer] parking lot drinking a box of wine, when the police was called, and at that time mobile crisis did show up, and was in the emergency department, on her evaluation, and they will follow-up with her, but the patient did refuse detox, and at this time, states that she is feeling suicidal, and that "this is the time" which she was stating earlier today as well, I feel that the patient is malingering, to stay overnight in the emergency department, she was kicked out of a hotel for not paying her bill, and is currently homeless. I do not feel that the patient is an immediate threat to herself or others, and can be released into [place] [employer] custody. Patient was discharged with paperwork, phone number for mobile crisis, who has been notified by [facility], and they will follow-up with the patient in the morning. Discharge - Discharge Clinical Impression: Suicidal ideation Condition: Stable Disposition: HOME, SELF-CARE Instructions: Suicidal Ideation ([facility]) Additional Instructions: Mobile crisis will follow up with you in the morning, to extend the resources to you again including a detox facility. Referrals: [facility] [Provider Group] - Follow up as needed
[2018-09-07 02:21] VITALS: BP 125/71
== END 2018-09-07 00:02 | disposition home or self-care (01) ==
LOC: ER 23:18
DX: R45.851 Suicidal ideations (principal); I10 Essential (primary) hypertension; J45.909 Unspecified asthma, uncomplicated; F32.9 Major depressive disorder, single episode, unspecified; Z79.899 Other long term (current) drug therapy; Z59.0 Homelessness
CPT/HCPCS: 99283

== ENCOUNTER 2018-11-16 08:04 | Emergency (ER) | payer MEDICARE ==
--- NOTE | 2018-11-16 09:10 | ER Document Report ---
ED Psych Disorder / Suicide - General Mode of Arrival: Ambulatory Information source: Patient TRAVEL OUTSIDE OF THE U.S. IN LAST 30 DAYS: No - HPI Patient complains to provider of: Suicidal ideation - Dictated <VENKATESH DELGADO - Last Filed: 11/16/18 15:28> <DAJUAN MCFARLAND - Last Filed: 11/16/18 16:17> <MUNDO PEREIRA - Last Filed: 11/16/18 16:58> - General Chief Complaint: Suicidal Ideation Stated Complaint: PSYCH Time Seen by Provider: 11/16/18 09:05 Primary Care Provider: [facility] [Outside] - Follow up as needed Notes: History of Present Illness Chief Complaint: Suicidal thoughts ] suicidal ideation No homicidal ideation No acute psychotic features History obtained from patient 68 years old female with a history of depression, alcoholism, supposed to be taking Celexa, has not been taking for a month. Has been having suicidal thoughts for the last 24 hours. No plan. Therefore present to the ED Symptoms began: Past few days Onset: Gradual Timing: Constant Quality: Unknown Intensity: Moderate to severe Location: Generalized Radiation: None Migration: None Aggravating factors: None Relieving factors: None Review of Systems: All other systems negative as reviewed. CONSTITUTIONAL No Fever. EYES No eye pain. ENT No sore throat CARDIOVASCULAR No chest pain. RESPIRATORY No SOB. GI No abdominal pain, no vomiting, no diarrhea. GENITOURINARY No dysuria. SKIN No rash. NEUROLOGIC No headache. MUSCULOSKELETAL No back pain. Physical Exam CONSTITUTIONAL Vital signs reviewed, Patient has normal respiratory rate, Well appearing, Patient appears comfortable, normal stature. HEAD Atraumatic, Normocephalic. EYES Eyes are normal to inspection. ENT Ears normal to inspection, Nose examination normal. NECK No jugular venous distention. RESPIRATORY CHEST Breath sounds normal, No respiratory distress. CARDIOVASCULAR RRR, No murmurs, Normal S1 S2, No rub, No gallop. ABDOMEN Abdomen is nontender, No masses, Bowel sounds normal, No distension, No peritoneal signs. BACK Normal inspection. UPPER EXTREMITY Inspection normal. LOWER EXTREMITY Inspection arun. NEURO No focal motor deficits. SKIN Skin is warm, Skin is dry, Skin is normal color. PSYCHIATRIC Normal affect. Suicidal and depression (VENKATESH DELGADO) - Related Data Allergies/Adverse Reactions: No Known Allergies Allergy (Verified 11/16/18 08:04) Past Medical History - Social History Smoking Status: Former Smoker Frequency of alcohol use: Heavy Drug Abuse: None Lives with: Family Family History: Reviewed & Not Pertinent Patient has suicidal ideation: Yes Patient has homicidal ideation: No - Past Medical History Cardiac Medical History: Reports: Hx Hypertension Pulmonary Medical History: Reports: Hx Asthma Renal/ Medical History: Denies: Hx Peritoneal Dialysis Psychiatric Medical History: Reports: Hx Depression Past Surgical History: Reports: Hx Abdominal Surgery, Hx Breast Surgery, Hx Orthopedic Surgery - right knee replacement <VENKATESH DELGADO - Last Filed: 11/16/18 15:28> Review of Systems <VENKATESH DELGADO - Last Filed: 11/16/18 15:28> - Review of Systems Notes: Dictated (VENKATESH DELGADO) Physical Exam <VENKATESH DELGADO - Last Filed: 11/16/18 15:28> - Vital signs Vitals: Temp Pulse Resp BP Pulse Ox 98.7 F 115 H 16 155/90 H 93 11/16/18 08:07 11/16/18 08:07 11/16/18 08:07 11/16/18 08:07 11/16/18 08:07 - Notes Notes: Dictated (VENKATESH DELGADO) Course - Laboratory Result Diagrams: 11/16/18 09:15 11/16/18 09:15 - EKG Interpretation by Vt EKG shows normal: Sinus rhythm - Sinus rhythm at 87 bpm normal axis no acute ST elevation ST depression T wave inversion noted. <VENKATESH DELGADO - Last Filed: 11/16/18 15:28> - Laboratory Result Diagrams: 11/16/18 09:15 11/16/18 09:15 <DAJUAN MCFARLAND - Last Filed: 11/16/18 16:17> - Laboratory Result Diagrams: 11/16/18 09:15 11/16/18 09:15 <MUNDO PEREIRA - Last Filed: 11/16/18 16:58> - Re-evaluation Re-evalutation: 11/16/18 16:52 pt rechecked just now. ambulated to restroom without problem. no complaints. will be discharged to [facility] (MUNDO PEREIRA) - Vital Signs Vital signs: Temp Pulse Resp BP Pulse Ox 98.7 F 115 H 16 155/90 H 93 11/16/18 08:07 11/16/18 08:07 11/16/18 08:07 11/16/18 08:07 11/16/18 08:07 - Laboratory Laboratory results interpreted by me: 11/16/18 11/16/18 11/16/18 09:15 09:15 09:45 Hgb 11.8 L Hct 35.5 L RDW 17.3 H Plt Count 120 L Potassium 3.5 L Urine Blood MODERATE H Urine Nitrite POSITIVE H Ur Leukocyte Esterase LARGE H Salicylates < 1.0 L Acetaminophen < 10 L Discharge <VENKATESH DELGADO - Last Filed: 11/16/18 15:28> <DAJUAN MCFARLAND - Last Filed: 11/16/18 16:17> <MUNDO PEREIRA - Last Filed: 11/16/18 16:58> - Discharge Clinical Impression: Alcohol abuse, Alcohol intoxication Suicidal behavior Qualifiers: Attempted self-injury: without attempted self-injury Qualified Code(s): R46.89 - Other symptoms and signs involving appearance and behavior Depression Qualifiers: Depression Type: major depressive disorder Major depression recurrence: single episode Active/Remission status: currently active Major depression episode severity: severe Psychotic features: without psychotic features Qualified Code(s): F32.2 - Major depressive disorder, single episode, severe without psychotic features Condition: Stable Disposition: HOME, SELF-CARE Additional Instructions: You have been evaluated by both medical and behavioral health providers while in the emergency department. You have been cleared from both acute medical and psychiatric issues. You gave verbal consent to make linkage to the [facility]. This is the appropriate level of short term inpatient care for alcohol detoxification and mental health. They will provide transportation to their facility by 1700. CHRONIC ALCOHOLISM and ALCOHOL ABUSE: Your evaluation reveals evidence of chronic alcoholism, an addiction to alcohol. The tendency to alcoholism may be inherited. Chronic use of alcohol weakens muscles, causes fatty deposits in the liver, damages the stomach, makes you more prone to infections, and can cause defects in unborn children. In the long run, brain atrophy and cirrhosis of the liver result. You are also at greater risk for certain types of cancer, such as cancer of the mouth, throat, stomach, and liver. Counselling services are available to help you. In-hospital treatment programs often help. Support groups such as Alcoholics Anonymous can be very useful in beating this addiction. Your physician can make a referral for you. As alcoholics often are prone to other addictions, you should discuss your use of any other medications with the doctor. DEPRESSION: Your evaluation reveals that you have mental depression. While symptoms may be vague, they often include disturbance of sleep, fatigue, loss of appetite, and general loss of interest in life. While depression may be a side effect of drugs, or a reaction to a major change in your life, many cases have no known cause. If depression is acute, and related to a major loss in your life, you can expect it to clear completely with time. If you have been depressed a long time, are prone to repeated bouts of depression or low mood, or have been thinking of suicide, get help. Depression can be treated with anti-depressant medication and counselling. Long-term depression will often take a few weeks to clear, even with appropriate medication. Follow-up care is important. SUICIDAL IDEATION: Suicidal ideation is a common medical term for thoughts about suicide, which may be as detailed as a formulated plan, without the suicidal act itself. Although most people who undergo suicidal ideation do not commit suicide, some go on to make suicide attempts. The range of suicidal ideation varies greatly from fleeting to detailed planning, role playing, and unsuccessful attempts. While thoughts about suicide are common, most people do not carry out serious actions to commit suicide. Based upon your evaluation and discussion with you, we do not believe you are currently at risk to act upon your thoughts of suicide. You have agreed to return to the Emergency Department, at any time, if you feel inclined to act upon your suicidal thoughts. FOLLOW-UP CARE: You have been linked to [facility] for voluntary inpatient short term dual diagnosis alcohol detoxification and mental health treatment per your verbal consent. They will provide transportation for you. You will get to their facility by 1700. You will go directly there from emergency department discharge. If you experience worsening or a significant change in your symptoms, notify the physician immediately, utilize mobile crisis or return to the Emergency Department at any time for re-evaluation. Referrals: [facility] [Outside] - Follow up as needed
[2018-11-16 09:34] LABS: HEMATOCRIT 35.5 % (36.0-47.0); HEMOGLOBIN 11.8 g/dL (12.0-15.5); MEAN CORPUSCULAR HEMOGLOBIN 29.1 pg (27.0-33.4); MEAN CORPUSCULAR HGB CONC 33.2 g/dL (32.0-36.0); MEAN CORPUSCULAR VOLUME 88 fl (80-97); PLATELET COUNT 120 10^3/uL (150-450); RED BLOOD COUNT 4.04 10^6/uL (3.72-5.28); RED CELL DISTRIBUTION WIDTH 17.3 % (11.5-14.0); WHITE BLOOD COUNT 5.1 10^3/uL (4.0-10.5)
[2018-11-16 09:53] LABS: ABSOLUTE LYMPHOCYTES# (MANUAL) 1.3 10^3/uL (0.5-4.7); ABSOLUTE MONOCYTES # (MANUAL) 0.3 10^3/uL (0.1-1.4); ANISOCYTOSIS 1+; BASOPHILS % (MANUAL) 1 % (0-2); EOSINOPHILS % (MANUAL) 3 % (0-6); LYMPHOCYTES % (MANUAL) 25 % (13-45); MONOCYTES % (MANUAL) 6 % (3-13); SEGMENTED NEUTROPHILS % (MAN) 65 % (42-78); TOTAL CELLS COUNTED 100; TOXIC GRANULATION SLIGHT
[2018-11-16 09:54] LABS: PLATELET COMMENT DECREASED
[2018-11-16 09:55] LABS: ALBUMIN 3.8 g/dL (3.5-5.0); ALCOHOL 262 mg/dL (NONE DETECTED); ALKALINE PHOSPHATASE 111 U/L (38-126); ANION GAP 9 (5-19); ASPARTATE AMINO TRANSFERASE 27 U/L (14-36); BILIRUBIN,DIRECT 0.3 mg/dL (0.0-0.4); BILIRUBIN,TOTAL 0.4 mg/dL (0.2-1.3); BLOOD UREA NITROGEN 9 mg/dL (7-20); CALCIUM 8.8 mg/dL (8.4-10.2); CARBON DIOXIDE 28 mmol/L (22-30); CHLORIDE 107 mmol/L (98-107); GLUCOSE 89 mg/dL (75-110); POTASSIUM 3.5 mmol/L (3.6-5.0); TOTAL PROTEIN 6.8 g/dL (6.3-8.2)
[2018-11-16 09:56] LABS: ACETAMINOPHEN < 10 ug/mL (10-30); SALICYLATE < 1.0 mg/dL (2.0-20.0)
[2018-11-16 10:19] LABS: APPEARANCE,URINE CLOUDY; BILIRUBIN,URINE NEGATIVE (NEGATIVE); COLOR,URINE YELLOW; GLUCOSE, URINE NEGATIVE (NEGATIVE); KETONES,URINE NEGATIVE (NEGATIVE); LEUKOCYTE ESTERASE,URINE LARGE (NEGATIVE); NITRITE,URINE POSITIVE (NEGATIVE); PROTEIN,URINE NEGATIVE (NEGATIVE); URINE SPECIFIC GRAVITY 1.013; UROBILINOGEN,URINE NEGATIVE mg/dL (<2.0)
[2018-11-16 10:37] LABS: URINE AMPHETAMINES SCREEN NEGATIVE; URINE BARBITURATES SCREEN NEGATIVE; URINE BENZODIAZEPINES SCREEN NEGATIVE; URINE COCAINE SCREEN NEGATIVE; URINE MARIJUANA (THC) SCREEN NEGATIVE; URINE METHADONE SCREEN NEGATIVE; URINE PHENCYCLIDINE SCREEN NEGATIVE
--- NOTE | 2018-11-16 14:44 | EKG REPORT ---
SEVERITY:- ABNORMAL ECG - SINUS OR ECTOPIC ATRIAL RHYTHM LEFT AXIS DEVIATION ANTERIOR INFARCT, AGE INDETERMINATE : Confirmed by: Khloe Argueta MD 16-Nov-2018 14:43:54
[2018-11-16 17:09] VITALS: BP 131/94
--- NOTE | 2018-11-17 09:24 | PSYCHOLOGICAL NOTE ---
Psych Note - Psych Note Date seen by psych provider: 11/16/18 Time seen by psych provider: 09:30 - Observed patient's presence at 0930. Chart review at 1234. Evaluation from [id number]. Linkage to [facility] started at 1255 and ongoing. Psych Note: Presenting Problem: SI with plan to OD on pills (medical documentation noted she had no pills with her when she came in), Alcohol Intoxication (Serum Alcohol Level was 262 upon arrival to the ED), reported increased depression and SI due to being 68 and homeless (been staying in various hotels with boyfriend) and not sleeping well lately. She was sleeping and required her name stated several times with gentle shake of leg to wake. She stated she drank wine last night, had relapsed a couple weeks ago. She stated she was homeless and needed something more than temporary treatment/housing. it was explained that she has b een to the ED previously (5 times on August 2018) with one of the last times being held for about a month with ED SW/DC Planning involved and they have done everything they can for her. She commented "It didn't work out because of the alcohol and drinking." Inquired if she had been to the [facility] and she said she thought so. Explained could link her to their voluntary inpatient short term (3- 7 days) facility for dual diagnosis alcohol and MH treatment. She gave verbal consent for that linkage and referral. Contacted [facility] to make linkage/referral. They allotted time slot of 1700 and were able to provide transportation. They identified she has been there before. Patient gave verbal consent to inform her (/boyfriend) Hira Daugherty of [facility] if he called or came in (even after her discharge). Diagnosis: Alcohol Use Disorder, Severe Homelessness Depression Hx of Malingering Psychosis Hx of verbal aggression and SI statements when being discharged Impression/Plan: Patient is cleared from acute psychiatric services. She gave verbal consent to provide linkage/referral to the [facility]. They accepted her for 1700 and provided transportation. She was made aware it was voluntary short term (3-7 days) dual diagnosis (alcohol and MH) treatment. She was informed ED SW/DC Planning had done everything they could for her previously (August-September 2018 when she spent about a month in ED). She was informed that after inpatient at [facility] she should have outpatient follow up for professional support and ongoing dual diagnosis treatment but would need to work with her /boyfriend on living arrangements. Consulted with Dr. Ceja regarding the management and care of patient. ED Physician in agreement with recommendations.
== END 2018-11-16 17:19 | disposition home or self-care (01) ==
LOC: ER 08:04
DX: F10.10 Alcohol abuse, uncomplicated (principal); F32.2 Major depressive disorder, single episode, severe without psychotic features; R45.851 Suicidal ideations; I10 Essential (primary) hypertension
CPT/HCPCS: 36415; 80053; 80307; 81001; 85025; 93005; 93010; 99285

== ENCOUNTER 2018-11-17 13:31 | Emergency (ER) | payer MEDICARE ==
--- NOTE | 2018-11-17 14:29 | ER Document Report ---
ED Medical Screen (RME) - General Chief Complaint: Loose Stools Stated Complaint: WEAKNESS Time Seen by Provider: 11/17/18 14:21 Mode of Arrival: Ambulatory Information source: Patient Notes: Patient is a 68-year-old female presenting to the emergency department from the [facility] with complaints of a fall this morning. Patient reports that she felt dizzy prior to falling. 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 She reports left foot pain. She denies striking her head. Exam: Patient alert, oriented, answering all questions appropriately. Mild swelling noted to left foot, strong dorsalis pedis pulse. I have greeted and performed a rapid initial assessment of this patient. A comprehensive ED assessment and evaluation of the patient, analysis of test results and completion of the medical decision making process will be conducted by additional ED providers. I have specifically instructed the patient or family members with the patient to immediately return to any nursing staff should anything change in the patient's condition or with their chief complaint. This medical record was dictated with voice recognizing software. There may be grammatical, syntax errors that are unintended. TRAVEL OUTSIDE OF THE [place] IN LAST 30 DAYS: No - Related Data Allergies/Adverse Reactions: No Known Allergies Allergy (Verified 11/17/18 13:33) Past Medical History - Social History Chew tobacco use (# tins/day): No Frequency of alcohol use: None Drug Abuse: None - Past Medical History Cardiac Medical History: Reports: Hx Hypertension Pulmonary Medical History: Reports: Hx Asthma Renal/ Medical History: Denies: Hx Peritoneal Dialysis Psychiatric Medical History: Reports: Hx Depression Past Surgical History: Reports: Hx Abdominal Surgery, Hx Breast Surgery, Hx Orthopedic Surgery - right knee replacement Physical Exam - Vital signs Vitals: Temp Pulse Resp BP Pulse Ox 98.1 F 80 16 109/75 95 11/17/18 13:41 11/17/18 13:41 11/17/18 13:41 11/17/18 13:41 11/17/18 13:41 Course - Vital Signs Vital signs: Temp Pulse Resp BP Pulse Ox 98.1 F 80 16 109/75 95 11/17/18 13:41 11/17/18 13:41 11/17/18 13:41 11/17/18 13:41 11/17/18 13:41
--- NOTE | 2018-11-17 15:17 | RADIOLOGY REPORT (SQ) ---
EXAM DESCRIPTION: FOOT LEFT COMPLETE COMPLETED DATE/TIME: 11/17/2018 3:02 pm REASON FOR STUDY: fall, left foot pain COMPARISON: None. NUMBER OF VIEWS: Three views. TECHNIQUE: AP, lateral and oblique radiographic images acquired of the left foot. LIMITATIONS: None. FINDINGS: MINERALIZATION: Normal. BONES: No acute fracture or dislocation. No worrisome bone lesions. JOINTS: No effusions. SOFT TISSUES: No soft tissue swelling. No foreign body. OTHER: No other significant finding. IMPRESSION: NEGATIVE STUDY OF THE LEFT FOOT. NO RADIOGRAPHIC EVIDENCE OF ACUTE INJURY. TECHNICAL DOCUMENTATION: JOB ID: [id number] [employer]- All Rights Reserved Reading location - IP/workstation name: [email or web address]
[2018-11-17] MEDS ORDERED: NORMAL SALINE 1000 ML 1,000 ML IV ONE (15:56)
[2018-11-17 16:19] LABS: ALBUMIN 3.9 g/dL (3.5-5.0); ALKALINE PHOSPHATASE 126 U/L (38-126); ANION GAP 8 (5-19); ASPARTATE AMINO TRANSFERASE 32 U/L (14-36); BILIRUBIN,DIRECT 0.2 mg/dL (0.0-0.4); BILIRUBIN,TOTAL 1.2 mg/dL (0.2-1.3); BLOOD UREA NITROGEN 9 mg/dL (7-20); CALCIUM 8.8 mg/dL (8.4-10.2); CARBON DIOXIDE 28 mmol/L (22-30); CHLORIDE 99 mmol/L (98-107); GLUCOSE 119 mg/dL (75-110); TOTAL PROTEIN 6.7 g/dL (6.3-8.2)
[2018-11-17 16:21] LABS: POTASSIUM 2.9 mmol/L (3.6-5.0)
[2018-11-17 16:22] LABS: HEMATOCRIT 34.5 % (36.0-47.0); HEMOGLOBIN 11.5 g/dL (12.0-15.5); MEAN CORPUSCULAR HEMOGLOBIN 29.3 pg (27.0-33.4); MEAN CORPUSCULAR HGB CONC 33.3 g/dL (32.0-36.0); MEAN CORPUSCULAR VOLUME 88 fl (80-97); RED BLOOD COUNT 3.92 10^6/uL (3.72-5.28); RED CELL DISTRIBUTION WIDTH 17.7 % (11.5-14.0); WHITE BLOOD COUNT 9.3 10^3/uL (4.0-10.5)
[2018-11-17] MEDS ORDERED: POTASSIUM CHLORIDE 10 MEQ CAPSULE.ER PO ONE (16:23)
[2018-11-17 16:52] LABS: PLATELET COUNT 97 10^3/uL (150-450)
[2018-11-17 16:56] LABS: ABSOLUTE LYMPHOCYTES# (MANUAL) 0.2 10^3/uL (0.5-4.7); ABSOLUTE MONOCYTES # (MANUAL) 0.4 10^3/uL (0.1-1.4); BASOPHILS % (MANUAL) 0 % (0-2); EOSINOPHILS % (MANUAL) 2 % (0-6); LYMPHOCYTES % (MANUAL) 2 % (13-45); MONOCYTES % (MANUAL) 4 % (3-13); SEGMENTED NEUTROPHILS % (MAN) 92 % (42-78); TOTAL CELLS COUNTED 100
[2018-11-17 16:57] LABS: ANISOCYTOSIS 1+; OVALOCYTES SLIGHT; PLATELET COMMENT DECREASED; POIKILOCYTOSIS SLIGHT
[2018-11-17 17:45] VITALS: BP 149/72
--- NOTE | 2018-11-17 17:57 | RADIOLOGY REPORT (SQ) ---
EXAM DESCRIPTION: L SPINE 2 VIEWS COMPLETED DATE/TIME: 11/17/2018 5:18 pm REASON FOR STUDY: fall/pain COMPARISON: None. NUMBER OF VIEWS: Two views. TECHNIQUE: AP and lateral radiographic images acquired of the lumbar spine. LIMITATIONS: None. FINDINGS: MINERALIZATION: Normal. SEGMENTATION: Normal. No transitional anatomy. ALIGNMENT: Normal. VERTEBRAE: Maintained height. No fracture or worrisome bone lesion. DISCS: Mild disc narrowing from L3-S1. Small marginal osteophytes. POSTERIOR ELEMENTS: Mild hypertrophic facet changes from L3-S1. HARDWARE: None in the spine. PARASPINAL SOFT TISSUES: Normal. PELVIS: Intact as visualized. No fractures or worrisome bone lesions. SI joints intact. OTHER: No other significant finding. IMPRESSION: Mild degenerative disc disease, spondylosis, and facet arthropathy. TECHNICAL DOCUMENTATION: JOB ID: [id number] [employer]- All Rights Reserved Reading location - IP/workstation name: [email or web address]
--- NOTE | 2018-11-17 18:23 | ER Document Report ---
ED General - General Chief Complaint: Loose Stools Stated Complaint: WEAKNESS Time Seen by Provider: 11/17/18 14:21 Mode of Arrival: Medic Information source: Patient TRAVEL OUTSIDE OF THE [place] IN LAST 30 DAYS: No - HPI Notes: Patient was seen here yesterday for alcohol intoxication. She was sent to the [facility] for alcohol withdrawal management. While there patient was given lisinopril and 0.2 mg of clonidine. She then became dizzy and had a blood pressure in the 80s systolic. She was sent here for further evaluation. Upon arrival here patient states she feels slightly dizzy. She also states that she has some mid back pain from a fall yesterday. This pain is constant. It is worse with movement and better with rest. It does radiate down into the lumbar area from the lower thoracic spine. It is an aching sensation. It is moderate in intensity. She had no trouble with urination bowel movements. No trouble with vomiting. She denies any head injury or loss of consciousness. - Related Data Allergies/Adverse Reactions: No Known Allergies Allergy (Verified 11/17/18 13:33) Past Medical History - General Information source: Patient - Social History Smoking Status: Former Smoker Chew tobacco use (# tins/day): No Frequency of alcohol use: Heavy Drug Abuse: None Family History: Reviewed & Not Pertinent Patient has suicidal ideation: No Patient has homicidal ideation: No - Past Medical History Cardiac Medical History: Reports: Hx Hypertension Pulmonary Medical History: Reports: Hx Asthma Renal/ Medical History: Denies: Hx Peritoneal Dialysis Psychiatric Medical History: Reports: Hx Depression Past Surgical History: Reports: Hx Abdominal Surgery, Hx Breast Surgery, Hx Orthopedic Surgery - right knee replacement Review of Systems - Review of Systems Constitutional: Malaise, Weakness. denies: Chills, Fever Cardiovascular: denies: Chest pain, Dyspnea Respiratory: denies: Hurts to breathe, Short of breath Musculoskeletal: Back pain -: Yes All other systems reviewed and negative Physical Exam - Vital signs Vitals: Temp Pulse Resp BP Pulse Ox 98.1 F 80 16 109/75 95 11/17/18 13:41 11/17/18 13:41 11/17/18 13:41 11/17/18 13:41 11/17/18 13:41 Interpretation: Normal - General General appearance: Appears well, Alert - HEENT Head: Normocephalic, Atraumatic Eyes: Normal Pupils: PERRL - Respiratory Respiratory status: No respiratory distress Chest status: Nontender Breath sounds: Normal Chest palpation: Normal - Cardiovascular Rhythm: Regular Heart sounds: Normal auscultation Murmur: No - Abdominal Inspection: Normal Distension: No distension Bowel sounds: Normal Tenderness: Nontender Organomegaly: No organomegaly - Back Back: Normal, Tender - Patient has some mild tenderness to palpation of the lower thoracic and lumbar spines. No significant step-off or deformity appre ciated - Extremities General upper extremity: Normal inspection, Nontender, Normal color, Normal ROM, Normal temperature General lower extremity: Normal inspection, Nontender, Normal color, Normal ROM, Normal temperature, Normal weight bearing. No: Oscar's sign - Neurological Neuro grossly intact: Yes Cognition: Normal Orientation: AAOx4 Festus Coma Scale Eye Opening: Spontaneous Festus Coma Scale Verbal: Oriented [place] Coma Scale Motor: Obeys Commands Festus Coma Scale Total: 15 Speech: Normal Motor strength normal: LUE, RUE, LLE, RLE Sensory: Normal - Psychological Associated symptoms: Normal affect, Normal mood - Skin Skin Temperature: Warm Skin Moisture: Dry Skin Color: Normal Course - Re-evaluation Re-evalutation: 11/17/18 18:26 Patient is resting comfortably in the bed. She is in no distress. Her blood pressure is normal. She is appropriate for discharge back to the [facility]. - Vital Signs Vital signs: Temp Pulse Resp BP Pulse Ox 98 F 79 18 149/72 H 99 11/17/18 17:43 11/17/18 17:43 11/17/18 17:43 11/17/18 17:43 11/17/18 17:43 - Laboratory Result Diagrams: 11/17/18 15:45 11/17/18 15:45 Laboratory results interpreted by me: 11/17/18 11/17/18 15:45 15:45 Hgb 11.5 L Hct 34.5 L RDW 17.7 H Plt Count 97 L Seg Neuts % (Manual) 92 H Lymphocytes % (Manual) 2 L Abs Neuts (Manual) 8.6 H Abs Lymphs (Manual) 0.2 L Sodium 134.7 L Potassium 2.9 L* Creatinine 0.48 L Glucose 119 H - Diagnostic Test Radiology reviewed: Image reviewed, Reports reviewed Discharge - Discharge Clinical Impression: Hypokalemia, Near syncope, Alcohol abuse Hypotension Qualifiers: Hypotension type: hypotension due to drug Qualified Code(s): I95.2 - Hypotension due to drugs Condition: Stable Disposition: PSYCH HOSP/UNIT Instructions: Alcohol Withdrawl ([facility]) Additional Instructions: Do not take clonidine.
== END 2018-11-17 18:55 ==
LOC: ER 13:31
DX: I95.2 Hypotension due to drugs (principal); T50.905A Adverse effect of unspecified drugs, medicaments and biological substances, initial encounter; F10.10 Alcohol abuse, uncomplicated; E87.6 Hypokalemia; R55 Syncope and collapse; R42 Dizziness and giddiness; M54.6 Pain in thoracic spine; M54.5 Low back pain; W01.0XXA Fall on same level from slipping, tripping and stumbling without subsequent striking against object, initial encounter; Y92.89 Other specified places as the place of occurrence of the external cause; I10 Essential (primary) hypertension; J45.909 Unspecified asthma, uncomplicated; R53.81 Other malaise; R53.1 Weakness; Z87.891 Personal history of nicotine dependence
CPT/HCPCS: 36415; 85025; 80053; 73630; 72100; J7030; A9270; 96360; 99285

== ENCOUNTER 2018-11-30 10:11 | Emergency (ER) | payer MEDICARE ==
--- NOTE | 2018-11-30 10:43 | ER Document Report ---
ED Psych Disorder / Suicide - General Mode of Arrival: Medic Information source: Patient TRAVEL OUTSIDE OF THE [place] IN LAST 30 DAYS: No - HPI Patient complains to provider of: Suicidal ideation - pt states she is homeless and "couldn't stand" living [place] and decided she didn't want to live any longer. She denies HI - General Chief Complaint: Depression Stated Complaint: PSYCH Time Seen by Provider: 11/30/18 10:36 Primary Care Provider: [facility] [Outside] - Follow up as needed - Related Data Allergies/Adverse Reactions: No Known Allergies Allergy (Verified 11/17/18 13:33) Past Medical History - General Information source: Patient - Social History Smoking Status: Former Smoker Chew tobacco use (# tins/day): No Frequency of alcohol use: Heavy Drug Abuse: None Family History: Reviewed & Not Pertinent Patient has suicidal ideation: Yes Patient has homicidal ideation: No - Past Medical History Cardiac Medical History: Reports: Hx Hypertension Pulmonary Medical History: Reports: Hx Asthma Renal/ Medical History: Denies: Hx Peritoneal Dialysis Psychiatric Medical History: Reports: Hx Depression Past Surgical History: Reports: Hx Abdominal Surgery, Hx Breast Surgery, Hx Orthopedic Surgery - right knee replacement Review of Systems - Review of Systems Constitutional: No symptoms reported EENT: No symptoms reported Cardiovascular: No symptoms reported Respiratory: No symptoms reported Gastrointestinal: No symptoms reported Musculoskeletal: No symptoms reported Neurological/Psychological: See HPI, Suicidal ideation -: Yes All other systems reviewed and negative Physical Exam - General General appearance: Appears well In distress: None - HEENT Pupils: PERRL Pharynx: Normal Neck: Normal - Respiratory Respiratory status: No respiratory distress Breath sounds: Normal - Cardiovascular Rhythm: Regular Heart sounds: Normal auscultation Murmur: No - Abdominal Inspection: Normal Bowel sounds: Normal Tenderness: Nontender - Neurological Neuro grossly intact: Yes Cognition: Normal Orientation: AAOx4 Speech: Normal - Vital signs Vitals: Temp Pulse Resp BP Pulse Ox 98.5 F 107 H 16 166/80 H 96 11/30/18 10:17 11/30/18 10:17 11/30/18 10:17 11/30/18 10:17 11/30/18 10:17 Course - Vital Signs Vital signs: Temp Pulse Resp BP Pulse Ox 98.5 F 107 H 16 166/80 H 96 11/30/18 10:17 11/30/18 10:17 11/30/18 10:17 11/30/18 10:17 11/30/18 10:17 Discharge - Discharge Clinical Impression: Homeless Depression Qualifiers: Depression Type: unspecified Qualified Code(s): F32.9 - Major depressive disorder, single episode, unspecified Condition: Stable Disposition: HOME, SELF-CARE Additional Instructions: You have been evaluated both medical and behavioral health teams and been deemed appropriate for discharge. You highly encouraged to use appropriate resources to address social needs. You have received outpatient resources and referrals and are highly encouraged to follow through with these for your substance abuse and mental health treatment. You have also received economic resource sheet for the county. AT ANY TIME, IF YOUR SYMPTOMS CHANGE SIGNIFICANTLY OR WORSEN OR YOU DEVELOP NEW SYMPTOMS, RETURN TO THE EMERGENCY DEPARTMENT IMMEDIATELY FOR RE-EVALUATION. Referrals: [facility] [Outside] - Follow up as needed
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
[2018-11-30 11:20] VITALS: BP 129/62
== END 2018-11-30 11:20 | disposition home or self-care (01) ==
LOC: ER 10:11
DX: F32.9 Major depressive disorder, single episode, unspecified (principal); Z59.0 Homelessness; Z87.891 Personal history of nicotine dependence; I10 Essential (primary) hypertension; J45.909 Unspecified asthma, uncomplicated
CPT/HCPCS: 99285

== ENCOUNTER 2019-02-26 08:11 | Emergency (ER) | payer MEDICARE ==
--- NOTE | 2019-02-26 09:23 | ER Document Report ---
ED Psych Disorder / Suicide - General Chief Complaint: Psych Problem Stated Complaint: PSYCH Time Seen by Provider: 02/26/19 09:18 Information source: Patient Notes: Patient is a 69-year-old female who comes in stating that she does not want to live anymore. She is thought about overdosing on pills. States that she has been in a psychiatric facility nearly yearly for at least the last 6 years. Patient has not done anything to hurt herself today. She was apparently living in [facility] and then it sounds like there was a romantic relationship that brought her down to [place]. That seems to have since ended. Patient states that she has a history of alcohol abuse and her last drink was over the weekend. States that she has lived in [place] [facility] [place] here but that the one here in [place] did not work out well for her. States that her relationships have been under a lot of strain, particularly 1 with her sister. Her sister and brother are living. The sister lives in [place] and her brother lives outside of [place]. She does not think that [place] would be a better place for her at this time. Patient also fell over the weekend some time and has a bruise to her face and pain in her right hip. She is able to ambulate with her walker. Patient states that she stayed in a homeless long-term last night and before that was staying in the park with her friend. She currently does not have any place to go. TRAVEL OUTSIDE OF THE U.S. IN LAST 30 DAYS: No - Related Data Allergies/Adverse Reactions: No Known Allergies Allergy (Verified 02/26/19 09:37) Past Medical History - General Information source: Patient - Social History Smoking Status: Unknown if Ever Smoked Frequency of alcohol use: Heavy Drug Abuse: None Lives with: Homeless Family History: Reviewed & Not Pertinent - Past Medical History Cardiac Medical History: Reports: Hx Hypertension Pulmonary Medical History: Reports: Hx Asthma Renal/ Medical History: Denies: Hx Peritoneal Dialysis Psychiatric Medical History: Reports: Hx Depression Past Surgical History: Reports: Hx Abdominal Surgery, Hx Breast Surgery, Hx Orthopedic Surgery - right knee replacement Review of Systems - Review of Systems -: Yes All other systems reviewed and negative Physical Exam - Vital signs Vitals: Temp Pulse Resp BP Pulse Ox 97.8 F 64 16 106/63 100 02/26/19 08:11 02/26/19 08:11 02/26/19 08:11 02/26/19 08:11 02/26/19 08:11 Interpretation: Normal - General General appearance: Appears well, Alert - HEENT Head: Normocephalic, Ecchymosis - To right cheek Eyes: Normal Pupils: PERRL - Respiratory Respiratory status: No respiratory distress Chest status: Nontender Breath sounds: Normal Chest palpation: Normal - Cardiovascular Rhythm: Regular Heart sounds: Normal auscultation Murmur: No - Abdominal Inspection: Normal Distension: No distension Bowel sounds: Normal Tenderness: Nontender Organomegaly: No organomegaly - Back Back: Normal, Nontender - Extremities General upper extremity: Normal inspection, Nontender, Normal color, Normal ROM, Normal temperature General lower extremity: Normal inspection, Tender - Right hip, Normal color, Normal ROM, Normal temperature, Normal weight bearing. No: Oscar's sign - Neurological Neuro grossly intact: Yes Cognition: Normal Orientation: AAOx4 [place] Coma Scale Eye Opening: Spontaneous [place] Coma Scale Verbal: Oriented [place] Coma Scale Motor: Obeys Commands Festus Coma Scale Total: 15 Speech: Normal Motor strength normal: LUE, RUE, LLE, RLE Sensory: Normal - Psychological Associated symptoms: Normal affect, Normal mood - Skin Skin Temperature: Warm Skin Moisture: Dry Skin Color: Normal Course - Re-evaluation Re-evalutation: 02/26/19 10:36 Patient is a 69-year-old female with a history of alcohol abuse who states that she is suicidal with a plan to overdose today. Blood work and imaging pending. Patient will be seen by [facility]. 02/26/19 15:19 CT with concern of right eye. Visual acuity at baseline. Patient has a history of being blind right eye. She is otherwise medically stable. Mental health is consulting. Patient apparently was discussed with a detox facility but she does not meet criteria for detox. - Vital Signs Vital signs: Temp Pulse Resp BP Pulse Ox 97.8 F 64 16 106/63 100 02/26/19 08:11 02/26/19 08:11 02/26/19 08:11 02/26/19 08:11 02/26/19 08:11 - Laboratory Result Diagrams: 02/26/19 09:25 02/26/19 09:25 Laboratory results interpreted by me: 12/20/19 12/20/19 09:25 09:25 Hgb 10.9 L Hct 33.2 L RDW 19.8 H Seg Neutrophils % 78.3 H Sodium 136.1 L Potassium 3.4 L AST 52 H Alkaline Phosphatase 137 H Salicylates < 1.0 L Acetaminophen < 10 L Discharge - Discharge Clinical Impression: Suicidal ideation, Alcohol abuse Condition: Stable Disposition: OTHER
[2019-02-26 09:48] LABS: ABSOLUTE BASOPHILS # (AUTO) 0.1 10^3/uL (0.0-0.2); ABSOLUTE LYMPHOCYTES (AUTO) 1.1 10^3/uL (0.5-4.7); ABSOLUTE MONOCYTES (AUTO) 0.5 10^3/uL (0.1-1.4); ABSOLUTE NEUT (AUTO) 5.8 10^3/uL (1.7-8.2); BASOPHILS % (AUTO) 0.8 % (0-2); EOSINOPHILS % (AUTO) 0.6 % (0-6); HEMATOCRIT 33.2 % (36.0-47.0); HEMOGLOBIN 10.9 g/dL (12.0-15.5); LYMPHOCYTES % (AUTO) 14.1 % (13-45); MEAN CORPUSCULAR HGB CONC 32.9 g/dL (32.0-36.0); MEAN CORPUSCULAR VOLUME 85 fl (80-97); MONOCYTES % (AUTO) 6.2 % (3-13); PLATELET COUNT 169 10^3/uL (150-450); RED CELL DISTRIBUTION WIDTH 19.8 % (11.5-14.0); SEGMENTED NEUTROPHILS % (AUTO) 78.3 % (42-78); TOTAL CELLS COUNTED % (AUTO) 100 %; WHITE BLOOD COUNT 7.5 10^3/uL (4.0-10.5)
[2019-02-26 10:08] LABS: ALBUMIN 4.3 g/dL (3.5-5.0); ALKALINE PHOSPHATASE 137 U/L (38-126); ANION GAP 10 (5-19); ASPARTATE AMINO TRANSFERASE 52 U/L (14-36); BILIRUBIN,DIRECT 0.2 mg/dL (0.0-0.4); BILIRUBIN,TOTAL 1.3 mg/dL (0.2-1.3); BLOOD UREA NITROGEN 17 mg/dL (7-20); CALCIUM 9.7 mg/dL (8.4-10.2); CARBON DIOXIDE 28 mmol/L (22-30); CHLORIDE 98 mmol/L (98-107); GLUCOSE 90 mg/dL (75-110); POTASSIUM 3.4 mmol/L (3.6-5.0); TOTAL PROTEIN 7.4 g/dL (6.3-8.2)
[2019-02-26 10:10] LABS: ACETAMINOPHEN < 10 ug/mL (10-30); ALCOHOL < 10 mg/dL (NONE DETECTED); SALICYLATE < 1.0 mg/dL (2.0-20.0)
[2019-02-26 10:30] LABS: URINE AMPHETAMINES SCREEN NEGATIVE; URINE BARBITURATES SCREEN NEGATIVE; URINE BENZODIAZEPINES SCREEN NEGATIVE; URINE COCAINE SCREEN NEGATIVE; URINE MARIJUANA (THC) SCREEN NEGATIVE; URINE METHADONE SCREEN NEGATIVE; URINE PHENCYCLIDINE SCREEN NEGATIVE
[2019-02-26] MEDS ORDERED: FOLIC ACID 1 MG TABLET PO ONE (10:32)
[2019-02-26] MEDS ORDERED: THIAMINE HCL 100 MG TABLET PO ONE (10:32)
--- NOTE | 2019-02-26 11:53 | RADIOLOGY REPORT (SQ) ---
EXAM DESCRIPTION: HIP RIGHT AP/LATERAL COMPLETED DATE/TIME: 02/26/2019 10:53 am REASON FOR STUDY: fall, pain COMPARISON: None. NUMBER OF VIEWS: Two views. TECHNIQUE: AP pelvis and additional frog-leg view of the right hip. LIMITATIONS: None. FINDINGS: MINERALIZATION: Osteopenia. RIGHT HIP: No fracture or dislocation. There is mild subchondral sclerosis along the superior articu lar surface of the acetabulum. The joint space is preserved. LEFT HIP: No fracture or dislocation. PUBIS AND ISCHIUM: The ilioischial and iliopectineal lines are intact. There is findings of chronic osteitis pubis. PELVIS: No fracture. SACRUM: The sacrum is obscured by overlying bowel. LOWER LUMBAR SPINE: Limited evaluation. SOFT TISSUES: Surgical clips and bowel anastomosis staple lines projecting within the lower quadrants . OTHER: No other finding. IMPRESSION: No acute osseous abnormality of the right hip. TECHNICAL DOCUMENTATION: JOB ID: [id number] [employer]- All Rights Reserved Reading location - IP/workstation name: [email or web address]
--- NOTE | 2019-02-26 12:56 | RADIOLOGY REPORT (SQ) ---
EXAM DESCRIPTION: CT HEAD WITHOUT COMPLETED DATE/TIME: 02/26/2019 12:38 pm REASON FOR STUDY: fall, injury COMPARISON: None. TECHNIQUE: Axial images acquired through the brain without intravenous contrast. Images reviewed wi th bone, brain and subdural windows. Additional sagittal and coronal reconstructions were generated. Images stored on PACS. All CT scanners at this facility use dose modulation, iterative reconstruction, and/or weight based d osing when appropriate to reduce radiation dose to as low as reasonably achievable (ALARA). [facility]: Dose Right [facility]: CareDose [facility]: Dose Right [facility]: Teradose 4D [facility]: Thucy RADIATION DOSE: CT Rad equipment meets quality standard of care and radiation dose reduction techniq ues were employed. CTDIvol: 53.2 mGy. DLP: 1070 mGy-cm. mGy. LIMITATIONS: None. FINDINGS: There is no acute intracranial hemorrhage, vascular territorial infarct, extra-axial fluid collection, mass effect or midline shift. There is no effacement of the cerebral sulci or basal sub arachnoid cisterns. The vigil-white matter differentiation is preserved. The caliber the ventricles is concordant with the degree of sulcation. The mucosal lining of the right maxillary sinus is thickened; there is no paranasal sinus air-fluid l evel. There is a layering hyperdensity within the vitreous of the right globe. The orbits are intac t. There is no asymmetry of the extra-ocular muscles or optic nerve sheath complexes. IMPRESSION: 1. No acute intracranial abnormality. 2. Layering hyperdensity within the vitreous of the right globe - correlate clinically to exclude a vitreous hemorrhage. EVIDENCE OF ACUTE STROKE: NO. COMMENT: Quality ID # [id number]: Final reports with documentation of one or more dose reduction techniques (e.g., Automated exposure control, adjustment of the mA and/or kV according to patient size, use of iterative reconstruction technique) TECHNICAL DOCUMENTATION: JOB ID: [id number] [employer] [facility]- All Rights Reserved Reading location - IP/workstation name: [email or web address]
--- NOTE | 2019-02-26 15:58 | EKG REPORT ---
SEVERITY:- NORMAL ECG - SINUS RHYTHM : Confirmed by: Lisa Nagel 26-Feb-2019 15:57:46
--- NOTE | 2019-02-26 19:22 | ER Document Report ---
Doctor's Note Notes: 02/26/19 19:22 Patient was medically cleared earlier today. She has now been cleared by mental health services. Discharge papers given to nurse. Patient understands cleared from medical and psychiatric services at this time.
[2019-02-26 20:12] VITALS: BP 104/79
== END 2019-02-26 19:38 | disposition home or self-care (01) ==
LOC: ER 08:11
DX: R45.851 Suicidal ideations (principal); F10.10 Alcohol abuse, uncomplicated; S00.83XA Contusion of other part of head, initial encounter; M25.551 Pain in right hip; W19.XXXA Unspecified fall, initial encounter; Z59.0 Homelessness; Z63.8 Other specified problems related to primary support group; I10 Essential (primary) hypertension; J45.909 Unspecified asthma, uncomplicated; H54.61 Unqualified visual loss, right eye, normal vision left eye
CPT/HCPCS: 93005; 99285; 36415; 80307 ×4; 84443; 85025; 80053; 73502; 70450; 93010; A9270 ×2

== ENCOUNTER 2019-02-26 21:33 | Emergency (ER) | payer MEDICARE ==
[2019-02-26 21:39] VITALS: BP 138/89
--- NOTE | 2019-02-26 21:45 | ER Document Report ---
ED Medical Screen (RME) - General Chief Complaint: Suicidal Ideation Stated Complaint: SUICIDAL THOUGHTS Time Seen by Provider: 02/26/19 21:41 Mode of Arrival: Ambulatory Information source: Patient Notes: 69-year-old female presents to ED for complaint of thoughts of suicide. She states she does not see any sense to prolong this anymore. She states she does have a lot of pills she just cannot take them. She states she has never tried to hurt herself in the past. She states she has had thoughts of suicide for the last week not before that. She has history of anxiety depression and alcohol abuse. She states she was in [facility] one time within the last 6 or 8 months, but she is not from [place]. She states most of her hospitalizations have been in [place]. I have greeted and performed a rapid initial assessment of this patient. A comprehensive ED assessment and evaluation of the patient, analysis of test results and completion of medical decision making process will be conducted by an additional ED providers. TRAVEL OUTSIDE OF THE U.S. IN LAST 30 DAYS: No - Related Data Allergies/Adverse Reactions: No Known Allergies Allergy (Verified 02/26/19 09:37) Past Medical History - Past Medical History Cardiac Medical History: Reports: Hx Hypertension Pulmonary Medical History: Reports: Hx Asthma Renal/ Medical History: Denies: Hx Peritoneal Dialysis Psychiatric Medical History: Reports: Hx Depression Past Surgical History: Reports: Hx Abdominal Surgery, Hx Breast Surgery, Hx Orthopedic Surgery - right knee replacement Physical Exam - Vital signs Vitals: Temp Pulse Resp BP Pulse Ox 98.0 F 102 H 16 138/89 H 99 02/26/19 21:37 02/26/19 21:37 02/26/19 21:37 02/26/19 21:37 02/26/19 21:37 Course - Vital Signs Vital signs: Temp Pulse Resp BP Pulse Ox 98.0 F 102 H 16 138/89 H 99 02/26/19 21:37 02/26/19 21:37 02/26/19 21:37 02/26/19 21:37 02/26/19 21:37
[2019-02-26 22:33] LABS: ABSOLUTE BASOPHILS # (AUTO) 0.1 10^3/uL (0.0-0.2); ABSOLUTE LYMPHOCYTES (AUTO) 1.7 10^3/uL (0.5-4.7); ABSOLUTE MONOCYTES (AUTO) 0.5 10^3/uL (0.1-1.4); BASOPHILS % (AUTO) 0.7 % (0-2); EOSINOPHILS % (AUTO) 0.5 % (0-6); HEMATOCRIT 35.9 % (36.0-47.0); HEMOGLOBIN 11.7 g/dL (12.0-15.5); LYMPHOCYTES % (AUTO) 23.7 % (13-45); MEAN CORPUSCULAR HEMOGLOBIN 27.7 pg (27.0-33.4); MEAN CORPUSCULAR HGB CONC 32.7 g/dL (32.0-36.0); MEAN CORPUSCULAR VOLUME 85 fl (80-97); MONOCYTES % (AUTO) 6.3 % (3-13); PLATELET COUNT 180 10^3/uL (150-450); RED BLOOD COUNT 4.23 10^6/uL (3.72-5.28); RED CELL DISTRIBUTION WIDTH 19.5 % (11.5-14.0); SEGMENTED NEUTROPHILS % (AUTO) 68.8 % (42-78); TOTAL CELLS COUNTED % (AUTO) 100 %; WHITE BLOOD COUNT 7.3 10^3/uL (4.0-10.5)
--- NOTE | 2019-02-26 23:00 | ER Document Report ---
ED Psych Disorder / Suicide - General Chief Complaint: Psych Problem Stated Complaint: SUICIDAL THOUGHTS Time Seen by Provider: 02/26/19 21:41 Mode of Arrival: Ambulatory TRAVEL OUTSIDE OF THE U.S. IN LAST 30 DAYS: No - HPI Notes: 69-year-old female to the emergency department with complaints of suicidal ideation. She states that she is either going to overdose on her trazodone, Celexa and lisinopril or she is going to jump in front of a train. Patient was just discharged from the emergency department today at 7:22 pm after she was completely medically evaluated and also behavioral health team evaluated her. She is well-known to our behavioral health team and does have a propensity to utilize EMS services inappropriately. She has been seen several times by her behavioral health team and offered detox and substance abuse resources but she has not followed through on any of these resources. She will come into the emergency department and states that she is feeling suicidal but she has never actually had an attempt in the past. She is homeless which complicates her presentation. She tells me that she [facility] but is not "working out" that well. Of note her suicidal complaints are the same as they were earlier today. - Related Data Allergies/Adverse Reactions: No Known Allergies Allergy (Verified 02/26/19 09:37) Past Medical History - General Information source: Patient - Social History Smoking Status: Never Smoker Frequency of alcohol use: Heavy Drug Abuse: None Lives with: Homeless Family History: Reviewed & Not Pertinent Patient has suicidal ideation: Yes Patient has homicidal ideation: No - Past Medical History Cardiac Medical History: Reports: Hx Hypertension Pulmonary Medical History: Reports: Hx Asthma Renal/ Medical History: Denies: Hx Peritoneal Dialysis Psychiatric Medical History: Reports: Hx Depression Past Surgical History: Reports: Hx Abdominal Surgery, Hx Breast Surgery, Hx Orthopedic Surgery - right knee replacement Review of Systems - Review of Systems Constitutional: denies: Chills, Fever EENT: No symptoms reported Cardiovascular: denies: Chest pain, Palpitations, Dyspnea, Syncope, Dizziness, Lightheaded Respiratory: denies: Cough, Short of breath Gastrointestinal: denies: Abdominal pain, Diarrhea, Nausea, Vomiting Genitourinary: denies: Burning, Dysuria, Flank pain Musculoskeletal: No symptoms reported Skin: No symptoms reported Hematologic/Lymphatic: No symptoms reported Neurological/Psychological: See HPI, Suicidal ideation. denies: Hallucinations, Homicidal ideation -: Yes All other systems reviewed and negative Physical Exam - Vital signs Vitals: Temp Pulse Resp BP Pulse Ox 98.0 F 102 H 16 138/89 H 99 02/26/19 21:37 02/26/19 21:37 02/26/19 21:37 02/26/19 21:37 02/26/19 21:37 Interpretation: Normal - General General appearance: Appears well, Alert In distress: None - HEENT Head: Normocephalic, Atraumatic Eyes: Normal Pupils: PERRL - Respiratory Respiratory status: No respiratory distress Chest status: Nontender Breath sounds: Normal Chest palpation: Normal - Cardiovascular Rhythm: Regular Heart sounds: Normal auscultation Murmur: No - Psychological Notes: Patient states that she is suicidal with the same plan as earlier todayto overdose or to step in front of a train. She admits that she is homeless. She denies any HI or hallucinations. She is argumentative. - Skin Skin Temperature: Warm Skin Moisture: Dry Skin Color: Normal Course - Re-evaluation Re-evalutation: 02/27/[address] Ceja twice about the patient tonight. This patient is very well-known to her. She does not feel that the patient meets inpatient criteria and that her complaints have not changed from earlier today. She does not believe that patient needs any medication adjustments. She does believe that the patient is likely malingering and abusing resources. I suspect that the patient is indeed me malingering and a lot of this has to do with her homelessness. I discussed the patient with Dr. Moreno my ER attending and we agree that patient can be discharged safely home. - Vital Signs Vital signs: Temp Pulse Resp BP Pulse Ox 98.0 F 102 H 16 138/89 H 99 02/26/19 21:41 02/26/19 21:37 02/26/19 21:41 02/26/19 21:37 02/26/19 21:41 - Laboratory Result Diagrams: 02/26/19 22:10 02/26/19 22:10 Laboratory results interpreted by me: 02/26/19 02/26/19 22:10 22:10 Hgb 11.7 L Hct 35.9 L RDW 19.5 H Sodium 136.6 L Potassium 3.3 L AST 48 H Salicylates < 1.0 L Acetaminophen < 10 L Discharge - Discharge Clinical Impression: Malingering Depression Qualifiers: Depression Type: unspecified Qualified Code(s): F32.9 - Major depressive disorder, single episode, unspecified Condition: Stable Disposition: HOME, SELF-CARE Additional Instructions: You have been evaluated by medial teams and behavioral health teams today extensively. You have been safe for discharge. Please follow up outpatient with [facility] and outpatient.
[2019-02-26 23:09] LABS: ALBUMIN 4.7 g/dL (3.5-5.0); ALKALINE PHOSPHATASE 118 U/L (38-126); ANION GAP 13 (5-19); ASPARTATE AMINO TRANSFERASE 48 U/L (14-36); BILIRUBIN,DIRECT 0.2 mg/dL (0.0-0.4); BILIRUBIN,TOTAL 0.9 mg/dL (0.2-1.3); BLOOD UREA NITROGEN 17 mg/dL (7-20); CALCIUM 10.2 mg/dL (8.4-10.2); CARBON DIOXIDE 26 mmol/L (22-30); CHLORIDE 98 mmol/L (98-107); GLUCOSE 90 mg/dL (75-110); POTASSIUM 3.3 mmol/L (3.6-5.0); TOTAL PROTEIN 8.1 g/dL (6.3-8.2)
[2019-02-26 23:10] LABS: ACETAMINOPHEN < 10 ug/mL (10-30); ALCOHOL < 10 mg/dL (NONE DETECTED); SALICYLATE < 1.0 mg/dL (2.0-20.0)
== END 2019-02-27 00:13 | disposition home or self-care (01) ==
LOC: ER 21:33
DX: F32.9 Major depressive disorder, single episode, unspecified (principal); Z76.5 Malingerer [conscious simulation]; R45.851 Suicidal ideations; I10 Essential (primary) hypertension; J45.909 Unspecified asthma, uncomplicated; Z59.0 Homelessness
CPT/HCPCS: 36415; 80307; 87070; 99284